=== PATIENT | female | born 1965 | race Caucasian/White ===

== ENCOUNTER → 2016-10-20 | Outpatient (CLI) | payer BC ==
--- NOTE | 2016-10-21 08:33 | MM ---
Reason for exam: screening (asymptomatic). Last mammogram was performed 1 year ago. History: Patient has history of endometrial cancer at age 38 and had first child at age 38. Benign stereotactic core biopsy of the right breast, October 02, 2001. Core biopsy of the right breast. Physical Findings: A clinical breast exam by your physician is recommended on an annual basis and results should be correlated with mammographic findings. MG 3D Screening Mammo W/Cad Bilateral CC and MLO view(s) were taken. Prior study comparison: October 15, 2015, bilateral MG 3d screening mammo w/cad. August 09, 2014, bilateral MG screening mammo w CAD. August 03, 2013, bilateral digital screening mammo w/CAD. There are scattered fibroglandular densities. Finding #1: There are typically benign round calcifications in both breasts. Finding #2: There is a microlobulated lobulated mass in the lower quadrant, middle position of the left breast. Previous mammotome biopsy in the right breast. New finding since October 15, 2015, August 09, 2014, and August 03, 2013. ASSESSMENT: Incomplete: need additional imaging evaluation, BI-RAD 0 RECOMMENDATION: Ultrasound of the left breast. [facility] will attempt to contact patient to return for ultrasound.
== END | disposition home or self-care (01) ==
LOC: RADMAMWWP 09:00
PROVIDERS: ATTEND Obstetrics & Gynecology
DX: Z12.31 Encounter for screening mammogram for malignant neoplasm of breast (principal)
CPT/HCPCS: 77063; G0202

== ENCOUNTER → 2016-10-22 | Outpatient (CLI) | payer BC ==
--- NOTE | 2016-10-22 09:53 | USB ---
Reason for exam: additional evaluation requested from abnormal screening. History: Patient has history of endometrial cancer at age 38 and had first child at age 38. Benign stereotactic core biopsy of the right breast, October 02, 2001. Core biopsy of the right breast. Physical Findings: Nurse Summary: Patient complains of pain left breast lower inner quadrant with palpation (nurse mm). US Breast Workup Limited LT Left breast ultrasound demonstrates a 0.9 x 0.5 x 0.4cm oval, cystic lesion at 7 o'clock and a 0.4 x 0.5 x 0.5cm oval, cystic, mixed, septated lesion at 7 o'clock. These results were verbally communicated with the patient and result sheet given to the patient on 10/22/16. ASSESSMENT: Benign, BI-RAD 2 RECOMMENDATION: Return to routine screening mammogram schedule for both breasts.
== END | disposition home or self-care (01) ==
LOC: RADUSWWP 07:34
PROVIDERS: ATTEND Obstetrics & Gynecology
DX: R92.8 Other abnormal and inconclusive findings on diagnostic imaging of breast (principal)

== ENCOUNTER → 2017-03-10 | Outpatient (CLI) | payer BC ==
--- NOTE | 2017-03-10 16:00 | US ---
EXAMINATION TYPE: US kidneys/renal and bladder DATE OF EXAM: 03/10/2017 COMPARISON: CT 2009 CLINICAL HISTORY: R31.21 MICROSCOPIC HEMATURIA. EXAM MEASUREMENTS: Right Kidney: 12.4 x5.0 x 6.1 cm Left Kidney: 12.0 x 5.2 x 5.0 cm Post Void Residual Volume: 87 mL Right Kidney: small cyst 1.3 x 1.0 x 0.9 inferior pole Left Kidney: Calyceal diverticulum versus renal sinus cyst measures 1.6 cm Bladder: wnl Bilateral Jets seen: Yes Normal Post Void Residual: No There is no evidence for hydronephrosis at this point in time. No nephrolithiasis is seen. No puja s are identified. The urinary bladder is anechoic. Bilateral ureteral jets are seen. IMPRESSION: 1. Abnormal post void residual of 87 mL within the urinary bladder. 2. 1.3 cm right lower pole renal cyst. 3. 1.6 cm left renal calyceal diverticulum versus renal sinus cyst.
--- NOTE | 2017-03-10 16:12 | US ---
EXAMINATION TYPE: US thyroid st tissue head/neck DATE OF EXAM: 03/10/2017 COMPARISON: 2016 CLINICAL HISTORY: E04.1 SINGLE THYROID NODULE. Left thyroidectomy for benign nodules GLAND SIZE: Right Lobe: 5.3 x 2.0 x 2.2 cm Overall Parenchyma: heterogenous Left Lobe: Surgically absent cm Isthmus Thickness: 0.2 cm NODULES RIGHT: # of nodules measured on right: 4 1. 0.7 X .03 x 0.5 cm cystic nodule at the upper pole with well-defined margins; . This nodule is wider than tall and shows no intranodular vascularity. Prior size: 0.7 x 0.7 x 0.4 cm 2. 0.6 X 0.5 x 0.5 cm isoechoic mixed nodule at the upper pole with well-defined margins; . This no dule is wider than tall and shows no intranodular vascularity. Prior size: 0.6 x 0.5 x 0.3 cm 3. 1.1 X 1.1 x 0.7 cm mixed nodule at the lower pole with well-defined margins; . This nodule shows intranodular vascularity. Looks like an adjacent 0.6 x 0.7 x 0.9 cm mixed mass Prior size: 0.7 x 0.7 x 0.6 cm 4. 0.7 X 0.7 x 0.6 cm echogenic solid nodule at the lower pole with well-defined margins; . This no dule is round and shows intranodular vascularity. Prior size: 0.8 x 0.6 x 0.5 cm LEFT: # of nodules measured on left: surgically removed ISTHMUS: # of nodules measured in the isthmus: 0 1Bilateral neck scanned, no evidence of lymphadenopathy. IMPRESSION: 1. Slight interval growth of a 1.1 cm nodule of mixed echogenicity within the lower pole with overall stability of 3 other right thyroid nodules. Follow-up is recommended in 6-12 months. 2. Surgical absence of the left thyroid.
== END | disposition home or self-care (01) ==
LOC: RADUSWWP 14:50
PROVIDERS: ATTEND Family Medicine
DX: N28.1 Cyst of kidney, acquired (principal); E04.1 Nontoxic single thyroid nodule
CPT/HCPCS: 76536; 76770

== ENCOUNTER → 2018-03-09 | Outpatient (CLI) | payer BC ==
--- NOTE | 2018-03-09 08:37 | US ---
EXAMINATION TYPE: US abdomen limited DATE OF EXAM: 03/09/2018 COMPARISON: CT 02/19/2010 CLINICAL HISTORY: R74.8 Elevated liver enzymes. EXAM MEASUREMENTS: Liver Length: 17.8 cm Gallbladder Wall: 0.2 cm CBD: 0.5 cm Right Kidney: 11.5 x 5.1 x 4.4 cm Pancreas: Tail obscured by overlying bowel gas. There is a hypodense region within the body of the p ancreas measuring 0.7 cm. Additional evaluation with CT is recommended. Liver: Increased attenuation, decreased visualization of vessels suggestive of moderate fatty infilt rate. Enlarged liver. Gallbladder: Two stones visualized Evidence for sonographic San's sign: No CBD: wnl as visualized, distal portion obscured by bowel gas Right Kidney: No hydronephrosis or masses seen IMPRESSION: 1. New visualization of a hypodense area within the pancreas. CT with contrast of the abdomen to eval uate the pancreas is recommended. Neoplasm is not excluded. 2. Moderate fatty infiltration of the liver. A Yellow level critical message alert has been initiated for Chip Whitman MD via the [employer] Critical Results System on 03/09/2018 8:34 AM. This message alert has been sent to Chip Whitman MD via the preferences provided by the clinician for the receipt of Radiology Critical Findings. Message ID [id number].
--- NOTE | 2018-03-09 09:13 | US ---
EXAMINATION TYPE: US thyroid st tissue head/neck DATE OF EXAM: 03/09/2018 COMPARISON: US 03/10/2017 CLINICAL HISTORY: E04.9 Nodular goiter. GLAND SIZE: Right Lobe: 4.7 x 2.2 x 2.0 cm Overall Parenchyma: heterogenous Left Lobe: Surgically absent Isthmus Thickness: 0.2 cm NODULES RIGHT: # of nodules measured on right: 4 1. 1.3 X 0.9 x 1.1 cm hypoechoic solid nodule at the lower pole with well-defined margins; . This nodule is wider than tall and shows intranodular vascularity. Prior size: 0.6 x 0.7 x 1.0 cm 2. 1.5 X 1.1 x 1.3 cm hypoechoic solid nodule at the lower pole with well-defined margins; . This n odule is wider than tall and shows intranodular vascularity. Prior size: 1.1 x 1.1 x 0.7 cm 3. 0.9 X 0.7 x 0.7 cm echogenic solid nodule at the lower pole with well-defined margins; . This no dule is wider than tall and shows intranodular vascularity. Prior size: 0.7 x 0.7 x 0.6 cm 4. 0.6 X 0.4 x 0.5 cm hypoechoic solid nodule at the mid pole with well-defined margins; . This nod ule is wider than tall and shows intranodular vascularity. Prior size: 0.8 x 0.4 x 0.7 cm LEFT: # of nodules measured on left: 0 ISTHMUS: # of nodules measured in the isthmus: 0 Bilateral neck scanned, no evidence of lymphadenopathy. IMPRESSION: 1. Enlarging right lobe thyroid nodules. These now measure greater than 1 cm.
== END | disposition home or self-care (01) ==
LOC: RADUSWWP 07:27
PROVIDERS: ATTEND Family Medicine
DX: K76.0 Fatty (change of) liver, not elsewhere classified (principal); R93.5 Abnormal findings on diagnostic imaging of other abdominal regions, including retroperitoneum; E04.2 Nontoxic multinodular goiter
CPT/HCPCS: 76536; 76705

== ENCOUNTER → 2018-03-09 | Outpatient (CLI) | payer BC ==
--- NOTE | 2018-03-09 14:13 | CT ---
EXAMINATION TYPE: CT pancreas biphase DATE OF EXAM: 03/09/2018 COMPARISON: 02/19/2010 and ultrasound 03/09/2018 HISTORY: 52-year-old female Cyst of pancreas. TECHNIQUE: Contiguous axial scanning of the abdomen abdomen following administration of 125 ml Isovue 370 IV contrast. Arterial and portal venous phase imaging is performed. Coronal/sagittal reconstruc tions performed. CT DLP: 1387 mGycm Automated exposure control for dose reduction was used. FINDINGS: Heart normal size without pericardial effusion. Lung bases clear without pleural effusion. Liver borderline enlarged at 18.0 cm with marked diffuse fatty infiltration. Some fatty sparing along the gallbladder fossa. No biliary ductal dilatation. Portal venous system is patent. Gallbladder is collapsed with multiple calculi. Adrenal glands, left kidney, spleen, and pancreas show no gross abnormal body. Stable exophytic subce ntimeter hypodensity posterior lower pole right kidney too small for accurate CT characterization, st ability suggesting a benign etiology such as a cyst. No dilated small bowel, free fluid, or free air. Tiny fatty umbilical hernia. Partial visualization of a normal appendix. Some prominent but nonenlarged right lower quadrant mesen teric lymph nodes measuring up to 6 mm, unchanged to smaller from 2010. Mild to moderate stool burden . No pericolonic inflammatory change. With direct attention to the pancreas, no focal pancreatic lesion is identified. No dilatation of the pancreatic duct. Bones: Degenerative disc disease L5-S1. Facet arthropathy lower lumbar spine. No osseous destructive process. IMPRESSION: 1. NO SUSPICIOUS PANCREATIC LESION. WHEN CORRELATING WITH CT IMAGES, THE ULTRASOUND FINDING IS SUSPEC CORY TO CORRESPOND TO A TORTUOUS PANCREATIC ARTERY. 2. CHOLELITHIASIS. 3. BORDERLINE HEPATOMEGALY (18.0 CM) WITH MARKED HEPATIC STEATOSIS. CORRELATE WITH LFT's, LIPID PROFI LE, AND PATIENT RISK FACTORS.
== END | disposition home or self-care (01) ==
LOC: RADCTMAIN 12:33
PROVIDERS: ATTEND Family Medicine
DX: K80.20 Calculus of gallbladder without cholecystitis without obstruction (principal); K76.0 Fatty (change of) liver, not elsewhere classified; R16.0 Hepatomegaly, not elsewhere classified
CPT/HCPCS: 74160; Q9967

== ENCOUNTER → 2018-06-05 | Outpatient (CLI) | payer BC ==
--- NOTE | 2018-06-05 13:57 | MM ---
Reason for exam: screening (asymptomatic). Last mammogram was performed 1 year and 7 months ago. History: Patient has history of endometrial cancer at age 38 and had first child at age 38. Benign stereotactic core biopsy of the right breast, October 02, 2001. Core biopsy of the right breast. Physical Findings: A clinical breast exam by your physician is recommended on an annual basis and results should be correlated with mammographic findings. MG 3D Screening Mammo W/Cad Bilateral CC and MLO view(s) were taken. Prior study comparison: October 20, 2016, bilateral MG 3d screening mammo w/cad. October 15, 2015, bilateral MG 3d screening mammo w/cad. There are scattered fibroglandular densities. Stable benign calcifications. There is chronic nodularity in the left breast. No significant changes when compared with prior studies. ASSESSMENT: Benign, BI-RAD 2 RECOMMENDATION: Routine screening mammogram of both breasts in 1 year.
== END | disposition home or self-care (01) ==
LOC: RADMAMWWP 10:09
PROVIDERS: ATTEND Family Medicine
DX: Z12.31 Encounter for screening mammogram for malignant neoplasm of breast (principal)
CPT/HCPCS: 77063; 77067

== ENCOUNTER → 2019-09-21 | Outpatient (CLI) | payer BC ==
--- NOTE | 2019-09-24 09:42 | MM ---
Reason for exam: screening (asymptomatic). Last mammogram was performed 1 year and 4 months ago. History: Patient is postmenopausal, has history of endometrial cancer at age 38, and had first child at age 38. Benign stereotactic core biopsy of the right breast, October 02, 2001. Core biopsy of the right breast. Physical Findings: A clinical breast exam by your physician is recommended on an annual basis and results should be correlated with mammographic findings. MG 3D Screening Mammo W/Cad Bilateral CC and MLO view(s) were taken. Prior study comparison: June 05, 2018, bilateral MG 3d screening mammo w/cad. October 20, 2016, bilateral MG 3d screening mammo w/cad. There are scattered fibroglandular densities. There is no discrete abnormality. No significant changes when compared with prior studies. ASSESSMENT: Negative, BI-RAD 1 RECOMMENDATION: Routine screening mammogram of both breasts in 1 year.
== END | disposition home or self-care (01) ==
LOC: RADMAMWWP 10:56
PROVIDERS: ATTEND Family Medicine
DX: Z12.31 Encounter for screening mammogram for malignant neoplasm of breast (principal)
CPT/HCPCS: 77063; 77067

== ENCOUNTER → 2020-03-28 | Outpatient (CLI) | payer BC ==
--- NOTE | 2020-03-28 10:58 | US ---
EXAMINATION TYPE: US thyroid st tissue head/neck DATE OF EXAM: 03/28/2020 COMPARISON: 03/09/2018 CLINICAL HISTORY: E04.9 nontoxic goiter. GLAND SIZE: Right Lobe: 5.4 x 2.9 x 2.6 cm Overall Parenchyma: heterogenous Left Lobe: Surgically absent cm Isthmus Thickness: 0.3 cm NODULES RIGHT: # of nodules measured on right: 1. 1.3 X 1.1 x 1.3 cm hypoechoic mixed nodule at the mid pole with well-defined margins. This nodu le is wider than tall and shows no intranodular vascularity. Prior size: 1.3 x 0.9 x 1.1 cm 2. 1.6 X 1.2 x 1.2 cm isoechoic mixed nodule at the mid pole with margins. This nodule is taller th an wide and shows intranodular vascularity. Prior size: 1.5 x 1.1 x 1.3 cm 3. 0.8 X 0.8 x 0.8 cm echogenic solid nodule at the lower pole with well-defined margins. This nodu le is wider than tall and shows intranodular vascularity. Prior size: 0.9 x 0.7 x 0.7 cm 4. 0.7 X 0.7 x 0.7 cm hypoechoic solid nodule at the mid pole with well-defined margins. This nodul e is taller than wide and shows no intranodular vascularity. Prior size: 0.6 x 0.4 x 0.5 cm LEFT: # of nodules measured on left: 0 ISTHMUS: # of nodules measured in the isthmus: 0 Bilateral neck scanned, no evidence of lymphadenopathy. IMPRESSION: Right lobe is enlarged and heterogeneous correlate for thyroiditis. Stable multinodular changes are s een with no significant interval change.
== END | disposition home or self-care (01) ==
LOC: RADUSWWP 10:05
PROVIDERS: ATTEND Family Medicine
DX: E04.2 Nontoxic multinodular goiter (principal)
CPT/HCPCS: 76536

== ENCOUNTER → 2020-09-10 | Outpatient (CLI) | payer BC ==
[2020-09-10 16:50] VITALS: BP 164/78; PULSE 69; RESP 18; TEMP 98; BMI 47.7
--- NOTE | 2020-09-10 18:11 | P.HPBAR ---
Bariatric H&P - History & Physicial H&P Date: 09/10/20 History & Physicial: Visit/CC: initial visit Patient initial contact: Initial weight: Initial weight in pounds: Height: 5 ft 2 in Initial BMI: Last weight: Current weight: 118.388 kg Current weight in pounds: 261.00 Current BMI: 47.7 Johnson body weight (based on NIH guidelines): 49.895 kg Excess body weight loss: The patient is a 55 year-old F who presents for Bariatric Assessment. She comes in looking into the sleeve gastrectomy. No reports of trouble with weight in her dad. She does not know her dad history. She has one time option. She has occasional GERD. She still gallbladder. She reports indigestion with fatty foods. She denies food allergies. No Crohns or ulcerative or stomach or esophageal cancer. She has colitis. She has poor sleep. No blood clots. Has easy bruising. Has lower back pain, hip pain, knee pain, not ankles. She has swelling of the ankles. No dysphagia. No diabetes. She has high blood pressure. Smoked in the past. [facility] [place] OF SERVICE: 09/10/2020 REASON FOR CONSULTATION: Initial bariatric evaluation. HISTORY OF PRESENT ILLNESS: Tim Dodson is a 55-year-old female who comes with lifelong morbid obesity. She comes in looking into the sleeve gastrectomy. She does not know her dad history. She has one time option for surgical weight loss per her insurance requirements. She has occasional gastroesophageal reflux disease. She still has her gallbladder. She reports indigestion with fatty foods. She denies food allergies. She denies Crohns or ulcerative disease in herself of family. She denies stomach or esophageal cancer in her family. She has colitis. She reports poor sleep. She denies blood clots. She has easy bruising. She has lower back pain, hip pain, knee pain, but denies ankle pain. She has swelling of the ankles. She denies dysphagia. No reports of diabetes. She has high blood pressure. She has smoked in the past. At height of 5 feet 2 inches, her ideal body weight is 135 pounds. She comes in 260 pounds. Her body mass index is 47.7. She is 125 pounds overweight. PAST MEDICAL HISTORY: 1. Morbid obesity due to excess calories 2. Body mass index of 47.7, initial 3. Gastroesophageal reflux disease. 4. Colitis 5. Hyperlipidemia 6. Osteoarthritis of the back 7. Osteoarthritis of the hips 8. Osteoarthritis of the knees 9. Hypertensive heart disease. PAST SURGICAL HISTORY: 1. Left breast biopsy 2. Hysterectomy 3. Tonsillectomy 4. Thyroid surgery HOME MEDICATIONS: Home Medications Medication Instructions Recorded Confirmed Aspirin [Adult Low Dose Aspirin EC] 81 mg PO DAILY 09/11/20 09/11/20 Atorvastatin [Lipitor] 20 mg PO DAILY 09/11/20 09/11/20 Cholecalciferol [Vitamin D3 (25 50 mcg PO DAILY 09/11/20 09/11/20 Mcg = 1000 Iu)] FLUoxetine HCL 20 mg PO DAILY 09/11/20 09/11/20 Furosemide [Lasix] 20 mg PO DAILY 09/11/20 09/11/20 Losartan Potassium [Cozaar] 100 mg PO DAILY 09/11/20 09/11/20 Metoprolol Tartrate [Lopressor] 25 mg PO BID 09/11/20 09/11/20 Vitamin E (Dl,Tocopheryl Acet) 400 unit PO DAILY 09/11/20 09/11/20 [Vitamin E] ALLERGIES: Allergies Allergy/AdvReac Type Severity Reaction Status Date / Time No Known Allergies Allergy Verified 09/11/20 11:06 SOCIAL HISTORY: Past tobacco use. FAMILY HISTORY: No family history of ulcerative colitis disease or Crohn's disease. Family history of morbid obesity. No lupus in the family. No reports of stomach or esophageal cancer. REVIEW OF ORGAN SYSTEMS: CONSTITUTIONAL: At height of 5 feet 2 inches, her ideal body weight is 135 pounds. She comes in 260 pounds. Her body mass index is 47.7. She is 125 pounds overweight. HEENT: Denies any active troubles with vision or hearing. ENDOCRINE: No diabetes. Has thyroid disorder. CARDIOVASCULAR: No past reports of palpitations or heart attacks or chest pain. Has hypertensive heart disease. Has hyperlipidemia. RESPIRATORY: Has daytime somnolence. Denies asthma GASTROINTESTINAL: Denies any bright red blood per rectum. No diarrhea. No constipation. Has gastroesophageal reflux disease. GENITOURINARY: Denies bladder urgency. No recent blood in urine. Past cervical cancer. MUSCULOSKELETAL: Has lower back pain and joint pain. Has osteoarthritis of the knees. NEURO: No headaches. No seizure disorders. PSYCH: Has depression. No suicidal ideation. RHEUMATOLOGIC: No lupus. No rheumatoid arthritis. HEMATOLOGIC: Denies any abnormal bleeding. Has bruising. SKIN: No rash. No skin cancer. PHYSICAL EXAM: VITAL SIGNS: Height 5 foot 2 inches, weight 260 pounds. BMI 47.7 Vital Signs Temp 98.0 F 09/10/20 16:34 Pulse 69 09/10/20 16:34 Resp 18 09/10/20 16:34 BP 164/78 09/10/20 16:34 Pulse Ox GENERAL: Well-developed in no acute distress. HEENT: No scleral icterus. Extraocular movements grossly intact. Hears conversational speech. No nasal drainage. NECK: Supple without lymphadenopathy. CHEST: Nonlabored respirations with equal bilateral excursions. CARDIOVASCULAR: Regular rate and regular rhythm. Distal 2+ pulses. ABDOMEN: Obese, soft, nontender, nondistended. MUSCULOSKELETAL: No clubbing, cyanosis. NEURO: No focal or lateralizing signs. Cranial nerves 2 through 12 grossly within normal limits. PSYCH: Appropriate affect. Alert and oriented to person, place and time. SKIN: Good skin turgor. Well perfused. ASSESSMENT: 1. Morbid obesity due to excess calories 2. Body mass index of 47.7, initial 3. Gastroesophageal reflux disease. 4. Colitis 5. Hyperlipidemia 6. Osteoarthritis of the back 7. Osteoarthritis of the hips 8. Osteoarthritis of the knees 9. Hypertensive heart disease. PLAN: 1. Surgical options including a band, gastric bypass, sleeve gastrectomy were described in detail. Alternatives such as gastric balloon including duodenal switch were described. She is looking into the gastric bypass. 2. The [place] bariatric surgical collaborative data and outcomes calculator were described with surgical options. 3. Recommend a bariatric metabolic panel to evaluate for micro- including macronutrient deficiencies. 4. For history of daytime somnolence, recommend evaluation and treatment for sleep apnea. 5. Dietary surveillance and counseling was reviewed. Increased protein intake over 65 grams daily advised. 6. Will need cardiac risk assessment. 7. Recommend medical risk assessment. 8. Psych assessment per insurance guidelines. 9. Recommend upper endoscopy. 10. Recommend 12-lead EKG. Thank you for this consultation. Past Medical History Past Medical History: Cancer, Hypertension, Thyroid Disorder Additional Past Medical History / Comment(s): cervical cancer 2003 History of Any Multi-Drug Resistant Organisms: None Reported Past Surgical History: Breast Surgery, Hysterectomy, Orthopedic Surgery, Tonsillectomy Additional Past Surgical History / Comment(s): thyroid surgery; bone removed left pinky toe; left breast biopsy Past Anesthesia/Blood Transfusion Reactions: No Reported Reaction Past Psychological History: Depression Smoking Status: Former smoker Past Alcohol Use History: Rare Past Drug Use History: Marijuana Additional Drug Use History / Comment(s): daily marijuana user Surgical - Exam Vital Signs Temp Pulse Resp BP 98.0 F 69 18 164/78 09/10/20 16:34 09/10/20 16:34 09/10/20 16:34 09/10/20 16:34 Bariatric Checklist Checklist: Plan: Checklist: EGD: 1. Hiatal hernia: 2. H. Pylori: HgbA1c: Vitamin D: Smoking: Primary care physician referral: Dr. Whitman Psychiatry clearance: Cardiology clearance: Sleep study: Diet journal: VTE risk score: VTE risk level: Rehab needs at discharge:
== END | disposition home or self-care (01) ==
LOC: BARWHC3 16:24
PROVIDERS: ATTEND Surgery Plastic and Reconstructive Surgery
DX: E66.01 Morbid (severe) obesity due to excess calories (principal); K21.9 Gastro-esophageal reflux disease without esophagitis; E78.5 Hyperlipidemia, unspecified; M17.0 Bilateral primary osteoarthritis of knee; M16.0 Bilateral primary osteoarthritis of hip; I11.9 Hypertensive heart disease without heart failure; M47.9 Spondylosis, unspecified; K52.9 Noninfective gastroenteritis and colitis, unspecified; Z68.42 Body mass index [BMI] 45.0-49.9, adult; Z79.82 Long term (current) use of aspirin; Z79.891 Long term (current) use of opiate analgesic; Z79.899 Other long term (current) drug therapy; Z90.710 Acquired absence of both cervix and uterus
CPT/HCPCS: 99211

== ENCOUNTER → 2020-10-09 | Outpatient (CLI) | payer BC ==
[2020-10-09 19:26] LABS: INR 0.91 (0.90-1.11)
[2020-10-10 01:35] LABS: HCT 35.9 % (37.2-46.3); HGB 11.1 g/dL (12.0-15.0); MCH 30.2 pg (27.0-32.0); MCHC 30.9 g/dL (32.0-37.0); MCV 97.8 fL (80.0-97.0); Mean Platelet Volume 10.4 fL (9.5-12.2); Platelet Count 423 X 10*3/uL (140-440); RBC 3.67 X 10*6/uL (4.10-5.20); RDW 12.8 % (11.5-14.5); WBC 8.52 X 10*3/uL (4.50-10.00)
[2020-10-10 03:32] LABS: Hemoglobin A1C 5.6 % (4.0-6.0)
[2020-10-10 09:03] LABS: % Iron Saturation 40.28 (12.00-45.00); Albumin 4.3 g/dL (3.80-4.90); Albumin/Globulin Ratio 2.39 (1.60-3.17); Anion Gap 13.6 mmol/L (4.00-12.00); BUN/Creat Ratio 17.78 Ratio (12.00-20.00); Calcium 9.4 mg/dL (8.7-10.3); Carbon Dioxide 24.4 mmol/L (21.6-31.8); Chol/HDL Ratio 3.1; Globulin 1.8 g/dL (1.6-3.3); LDL Cholesterol,Calculated 89.6 mg/dL (0.0-131.0); Magnesium 1.9 mg/dL (1.5-2.4); Non-African American GFR(CKD) 72.5 (60.0-200.0); Phosphorus 3.2 mg/dL (2.4-5.1); Potassium 4.1 mmol/L (3.5-5.5); Total Bilirubin 0.7 mg/dL (0.3-1.2); Total Protein 6.1 g/dL (6.2-8.2); VLDL Calculation 17.4 mg/dL (5.00-40.00)
[2020-10-10 09:14] LABS: Ferritin 120.4 ng/mL (10.0-291.0)
[2020-10-10 09:30] LABS: Folate, Serum 8.8 ng/mL
[2020-10-10 12:18] LABS: Zinc, Serum 61 ug/dL (60-130)
[2020-10-12 18:32] LABS: Selenium 120 mcg/L (63-160)
[2020-10-13 07:07] LABS: Vitamin A 36 ug/dL (38-106)
[2020-10-13 07:32] LABS: Vit B1(Thiamine) 48 ug/L (38-122)
== END | disposition home or self-care (01) ==
LOC: LABWHC1 10:29
PROVIDERS: ATTEND Surgery Plastic and Reconstructive Surgery
DX: N19 Unspecified kidney failure (principal); K74.1 Hepatic sclerosis; E89.1 Postprocedural hypoinsulinemia; D50.8 Other iron deficiency anemias; E44.0 Moderate protein-calorie malnutrition; E55.9 Vitamin D deficiency, unspecified; K50.90 Crohn's disease, unspecified, without complications
CPT/HCPCS: 36415; 80053; 80061; 82306; 82525; 82607; 82728; 82746; 83036; 83540; 83550; 83735; 83970; 84100; 84134; 84255; 84425; 84443; 84590; 84630; 85027; 85610; 85730

== ENCOUNTER 2020-10-15 09:29 | Day surgery (SDC) | payer BC ==
[2020-10-10 15:10] VITALS: BMI 45.3
--- NOTE | 2020-10-15 04:08 | P.GSHP ---
History of Present Illness H&P Date: 10/15/20 CHIEF COMPLAINT: GERD HISTORY OF PRESENT ILLNESS: The patient is a 55-year-old female who presents reports gastroesophageal reflux disease. Upper endoscopy was offered for further evaluation and management. PAST MEDICAL HISTORY: Please see list. PAST SURGICAL HISTORY: Please see list. MEDICATIONS: Please see list. ALLERGIES: Please see list. SOCIAL HISTORY: No illicit drug use FAMILY HISTORY: No reports of Crohn disease or ulcerative colitis. REVIEW OF ORGAN SYSTEMS: CONSTITUTIONAL: No reports of fevers or chills. GI: Denies any blood in stools or constipation. PHYSICAL EXAM: VITAL SIGNS: Stable GENERAL: Well-developed and pleasant in no acute distress. HEENT: No scleral icterus. Extraocular movements grossly intact. Moist buccal mucosa. NECK: Supple without lymphadenopathy. CHEST: Unlabored respirations. Equal bilateral excursions. CARDIOVASCULAR: Regular rate and rhythm. Distal 2+ pulses. ABDOMEN: Soft, nondistended. MUSCULOSKELETAL: No clubbing, cyanosis, or edema. ASSESSMENT: 1. Gastroesophageal reflux disease PLAN: 1. Recommend proceeding with an upper endoscopy Past Medical History Past Medical History: Cancer, Hypertension, Thyroid Disorder Additional Past Medical History / Comment(s): cervical cancer 2004 History of Any Multi-Drug Resistant Organisms: None Reported Past Surgical History: Breast Surgery, Hysterectomy, Orthopedic Surgery, Tonsillectomy Additional Past Surgical History / Comment(s): thyroid surgery; bone removed left pinky toe; left breast biopsy Past Anesthesia/Blood Transfusion Reactions: No Reported Reaction Smoking Status: Former smoker - Past Family History Mother Family Medical History: No Reported History Father History Unknown: Yes Medications and Allergies Home Medications Medication Instructions Recorded Confirmed Type Aspirin [Adult Low Dose Aspirin EC] 81 mg PO DAILY 09/11/20 10/10/20 History Atorvastatin [Lipitor] 10 mg PO DAILY 09/11/20 10/10/20 History Cholecalciferol [Vitamin D3 (25 50 mcg PO DAILY 09/11/20 10/10/20 History Mcg = 1000 Iu)] FLUoxetine HCL 20 mg PO HS 09/11/20 10/10/20 History Furosemide [Lasix] 20 mg PO DAILY 09/11/20 10/10/20 History Losartan Potassium [Cozaar] 100 mg PO QAM 09/11/20 10/10/20 History Metoprolol Tartrate [Lopressor] 25 mg PO BID 09/11/20 10/10/20 History Vitamin E (Dl,Tocopheryl Acet) 400 unit PO DAILY 09/11/20 10/10/20 History [Vitamin E] Allergies Allergy/AdvReac Type Severity Reaction Status Date / Time No Known Allergies Allergy Verified 10/10/20 15:04
[~2020-10-15 09:29] MED LIST: LACTATED RINGERS 1,000 ML IV SCH; LIDOCAINE 1% (10MG/ML) FOR IV START INTRADERMA PRN
[2020-10-15 09:45] VITALS: TEMP 98.3
[2020-10-15] MEDS ORDERED: PROPOFOL 10 MG/ML 20 ML VIAL IV ONE (10:24)
[2020-10-15] MEDS ORDERED: LIDOCAINE 1% INJ 10MG/ML (20 ML MDV) ONE (10:24)
[2020-10-15 11:00] VITALS: BP 139/73; PULSE 60; RESP 16
--- NOTE | 2020-10-22 11:44 | P.PCN ---
Date of Procedure: 10/15/20 Description of Procedure: PREOPERATIVE DIAGNOSIS: Gastroesophageal reflux disease. Morbid obesity. POSTOPERATIVE DIAGNOSIS: Morbid obesity. Gastritis. Gastroesophageal reflux disease. Diaphragmatic hiatal hernia OPERATION: Esophagogastroduodenoscopy with biopsies along antrum. SURGEON: Radha Leon MD ANESTHESIA: MAC. INDICATIONS: The patient is a 55-year-old female who presents with a history of reflux disease. Benefits and risks of the procedure were described. Informed consent was obtained. DESCRIPTION: The patient was brought into the endoscopy suite and laid in the left lateral decubitus position. An Olympus gastroscope was passed along the posterior oropharynx down to the distal esophagus where the squamocolumnar junction was encountered at 37 cm from the incisors. The stomach was entered and no bile reflux was found. Additional findings are listed below. Biopsies with cold fo rceps were obtained of the antrum. The first through third portion of the duodenum was examined and unremarkable. Retroflexion of the scope confirmed Hill grade 3 lower esophageal valve. The squamocolumnar junction demonstrated LA grade B erosive esophagitis. The stomach was desufflated. The patient tolerated the procedure well. FINDINGS: Squamocolumnar junction 37 cm from the incisors. Diaphragmatic hiatus at 40 cm. Hiatal hernia, 3 cm Hill grade 3 lower esophageal valve. LA grade B erosive esophagitis. No active duodenitis. Chronic gastritis RECOMMENDATIONS: Upper endoscopy as needed. Plan - Discharge Summary Discharge Rx Participant: No New Discharge Prescriptions: Continue Vitamin E (Dl,Tocopheryl Acet) [Vitamin E] 400 unit PO DAILY Cholecalciferol [Vitamin D3 (25 Mcg = 1000 Iu)] 50 mcg PO DAILY Atorvastatin [Lipitor] 10 mg PO DAILY Losartan Potassium [Cozaar] 100 mg PO QAM Furosemide [Lasix] 20 mg PO DAILY FLUoxetine HCL 20 mg PO HS Aspirin [Adult Low Dose Aspirin EC] 81 mg PO DAILY Metoprolol Tartrate [Lopressor] 25 mg PO BID Discharge Medication List Aspirin [Adult Low Dose Aspirin EC] 81 mg PO DAILY 09/11/20 [History] Atorvastatin [Lipitor] 10 mg PO DAILY 09/11/20 [History] Cholecalciferol [Vitamin D3 (25 Mcg = 1000 Iu)] 50 mcg PO DAILY 09/11/20 [Histo ry] FLUoxetine HCL 20 mg PO HS 09/11/20 [History] Furosemide [Lasix] 20 mg PO DAILY 09/11/20 [History] Losartan Potassium [Cozaar] 100 mg PO QAM 09/11/20 [History] Metoprolol Tartrate [Lopressor] 25 mg PO BID 09/11/20 [History] Vitamin E (Dl,Tocopheryl Acet) [Vitamin E] 400 unit PO DAILY 09/11/20 [History] [facility] [place] [facility] Patient Instructions/Handouts: *[facility] - (Anesthesia) Endoscopy Discharge Instructions, Gastritis (DC), Upper Endoscopy (DC) Activity/Diet/Wound Care/Special Instructions: REST TODAY, NO DRIVING, DRINK LOTS OF FLUIDS Discharge Disposition: HOME SELF-CARE
== END 2020-10-15 11:25 | disposition home or self-care (01) ==
LOC: ORWHC2ENDO 09:29
PROVIDERS: ATTEND Surgery Plastic and Reconstructive Surgery
DX: K21.9 Gastro-esophageal reflux disease without esophagitis (principal); I10 Essential (primary) hypertension; E78.5 Hyperlipidemia, unspecified; F32.9 Major depressive disorder, single episode, unspecified; E66.01 Morbid (severe) obesity due to excess calories; E89.0 Postprocedural hypothyroidism; Z85.41 Personal history of malignant neoplasm of cervix uteri; Z98.890 Other specified postprocedural states; Z90.710 Acquired absence of both cervix and uterus; Z90.89 Acquired absence of other organs; Z87.891 Personal history of nicotine dependence; Z79.82 Long term (current) use of aspirin; Z79.899 Other long term (current) drug therapy; Z68.42 Body mass index [BMI] 45.0-49.9, adult
CPT/HCPCS: 43239; 88305; J2001; J2704

== ENCOUNTER → 2020-11-26 | Outpatient (CLI) | payer BC ==
--- NOTE | 2020-11-26 18:52 | P.PN ---
Subjective Progress Note Date: 11/26/20 DATE OF SERVICE: 11/26/2020 CHIEF COMPLAINT: Morbid obesity HISTORY OF PRESENT ILLNESS: Tim Dodson is a 55-year-old female who comes with lifelong morbid obesity. She comes in looking into the sleeve gastrectomy. As a result of her morbid obesity, she has developed sleep apnea, osteoarthritis of the lower back pain, hip pain, knee pain, including hypertensive heart disease. She comes in with new anemia. She has completed upper endoscopy. Her last colonosopy was 5 years ago. She has completed COVID vaccination. She is in medical supervised weight loss. She presents for management of her morbid obesity including new anemia. At height of 5 feet 2 inches, her ideal body weight is 135 pounds. She comes in 266 pounds from 260 pounds, 2 months ago. She has gained 6 pounds in 2 months. Her body mass index is 48.8. She is 131 pounds overweight. PAST MEDICAL HISTORY: 1. Morbid obesity due to excess calories 2. Body mass index of 48.8 3. Gastroesophageal reflux disease. 4. Colitis 5. Hyperlipidemia 6. Osteoarthritis of the back 7. Osteoarthritis of the hips 8. Osteoarthritis of the knees 9. Hypertensive heart disease. PAST SURGICAL HISTORY: 1. Left breast biopsy 2. Hysterectomy 3. Tonsillectomy 4. Thyroid surgery HOME MEDICATIONS: Home Medications Medication Instructions Recorded Confirmed Aspirin [Adult Low Dose Aspirin EC] 81 mg PO DAILY 09/11/20 09/11/20 Atorvastatin [Lipitor] 20 mg PO DAILY 09/11/20 09/11/20 Cholecalciferol [Vitamin D3 (25 50 mcg PO DAILY 09/11/20 09/11/20 Mcg = 1000 Iu)] FLUoxetine HCL 20 mg PO DAILY 09/11/20 09/11/20 Furosemide [Lasix] 20 mg PO DAILY 09/11/20 09/11/20 Losartan Potassium [Cozaar] 100 mg PO DAILY 09/11/20 09/11/20 Metoprolol Tartrate [Lopressor] 25 mg PO BID 09/11/20 09/11/20 Vitamin E (Dl,Tocopheryl Acet) 400 unit PO DAILY 09/11/20 09/11/20 [Vitamin E] ALLERGIES: Allergies Allergy/AdvReac Type Severity Reaction Status Date / Time No Known Allergies Allergy Verified 09/11/20 11:06 SOCIAL HISTORY: Past tobacco use. FAMILY HISTORY: No family history of ulcerative colitis disease or Crohn's disease. Family history of morbid obesity. No lupus in the family. No reports of stomach or esophageal cancer. REVIEW OF ORGAN SYSTEMS: CONSTITUTIONAL: At height of 5 feet 2 inches, her ideal body weight is 135 pounds. She comes in 260 pounds. Her body mass index is 47.7. She is 125 pounds overweight. HEENT: Denies any active troubles with vision or hearing. ENDOCRINE: No diabetes. Has thyroid disorder. CARDIOVASCULAR: No past reports of palpitations or heart attacks or chest pain. Has hypertensive heart disease. Has hyperlipidemia. RESPIRATORY: Has daytime somnolence. Denies asthma GASTROINTESTINAL: Denies any bright red blood per rectum. No diarrhea. No constipation. Has gastroesophageal reflux disease. GENITOURINARY: Denies bladder urgency. No recent blood in urine. Past cervical cancer. MUSCULOSKELETAL: Has lower back pain and joint pain. Has osteoarthritis of the knees. NEURO: No headaches. No seizure disorders. PSYCH: Has depression. No suicidal ideation. RHEUMATOLOGIC: No lupus. No rheumatoid arthritis. HEMATOLOGIC: Denies any abnormal bleeding. Has bruising. SKIN: No rash. No skin cancer. PHYSICAL EXAM: VITAL SIGNS: Height 5 foot 2 inches, weight 266 pounds. BMI 48.8 Vital Signs Temp 97.5 F L 11/26/20 18:33 Pulse 63 11/26/20 18:33 Resp 16 11/26/20 18:33 BP 146/83 11/26/20 18:33 Pulse Ox GENERAL: Well-developed in no acute distress. HEENT: No scleral icterus. Extraocular movements grossly intact. Hears conversational speech. No nasal drainage. NECK: Supple without lymphadenopathy. CHEST: Nonlabored respirations with equal bilateral excursions. CARDIOVASCULAR: Regular rate and regular rhythm. Distal 2+ pulses. ABDOMEN: Obese, soft, nontender, nondistended. MUSCULOSKELETAL: No clubbing, cyanosis. NEURO: No focal or lateralizing signs. Cranial nerves 2 through 12 grossly within normal limits. PSYCH: Appropriate affect. Alert and oriented to person, place and time. SKIN: Good skin turgor. Well perfused. LABS: Hemoglobin low, total protein is low, Vitamin A is low, PTH is elevated EGD FINDINGS: Squamocolumnar junction 37 cm from the incisors. Diaphragmatic hiatus at 40 cm. Hiatal hernia, 3 cm Hill grade 3 lower esophageal valve. LA grade B erosive esophagitis. No active duodenitis. Chronic gastritis Final Pathologic Diagnosis GASTRIC ANTRUM, BIOPSY: Benign gastric mucosa without significant histopathologic changes. ASSESSMENT: 1. Morbid obesity due to excess calories 2. Body mass index of 48.8 3. Gastroesophageal reflux disease. 4. Colitis 5. Hyperlipidemia 6. Osteoarthritis of the back 7. Osteoarthritis of the hips 8. Osteoarthritis of the knees 9. Hypertensive heart disease. 10. Vitamin A deficiency 11. Anemia 12. Secondary hyperparathyroidism 13. Hiatal hernia PLAN: 1. She comes in with anemia. Upper endoscopy is completed. Recommend colonoscopy for anemia. 2. Recommend repeat labs for iron and CBC. 3. Recommend EKG. 4. Recommend esophagram for further evaluation of her hiatal hernia. 5. Recommend food journal for dietary surveillance. Objective - Vital Signs Vital signs: Vital Signs Temp 97.5 F L 11/26/20 18:33 Pulse 63 11/26/20 18:33 Resp 16 11/26/20 18:33 BP 146/83 11/26/20 18:33 Pulse Ox Intake & Output 11/25/20 11/26/20 11/26/20 18:59 06:59 18:59 Weight 121.109 kg
== END ==
CPT/HCPCS: 99211

== ENCOUNTER → 2020-12-05 | Outpatient (CLI) | payer BC ==
[2020-12-05 23:37] LABS: HGB 13.9 g/dL (12.0-15.0); MCH 28.8 pg (27.0-32.0); MCHC 30.9 g/dL (32.0-37.0); MCV 93.4 fL (80.0-97.0); Mean Platelet Volume 10.5 fL (9.5-12.2); Platelet Count 221 X 10*3/uL (140-440); RBC 4.82 X 10*6/uL (4.10-5.20); RDW 13.6 % (11.5-14.5)
[2020-12-06 03:26] LABS: Ferritin 72.9 ng/mL (10.0-291.0)
[2020-12-06 03:44] LABS: % Iron Saturation 17.82 (12.00-45.00)
== END | disposition home or self-care (01) ==
LOC: LABWHC1 10:11
PROVIDERS: ATTEND Surgery Plastic and Reconstructive Surgery
DX: E66.01 Morbid (severe) obesity due to excess calories (principal); D50.9 Iron deficiency anemia, unspecified; Z98.84 Bariatric surgery status
CPT/HCPCS: 36415; 82728; 83540; 83550; 85027; 93005

== ENCOUNTER → 2020-12-15 | Outpatient (CLI) | payer BC ==
[2020-12-15 09:16] VITALS: BMI 48.8
== END ==
LOC: BARWHC3 08:49
PROVIDERS: ATTEND Surgery Plastic and Reconstructive Surgery
DX: E66.01 Morbid (severe) obesity due to excess calories (principal); Z71.3 Dietary counseling and surveillance; Z68.41 Body mass index [BMI] 40.0-44.9, adult
CPT/HCPCS: 97804

== ENCOUNTER → 2021-02-04 | Outpatient (CLI) | payer BC ==
[2021-02-04 17:28] VITALS: BP 125/79; PULSE 71; RESP 18; TEMP 98.1; BMI 48.8
--- NOTE | 2021-02-04 17:51 | P.PN ---
Subjective Progress Note Date: 02/04/21 Consent for sleeve reviewed. Objective - Vital Signs Vital signs: Vital Signs Temp 98.1 F 02/04/21 17:23 Pulse 71 02/04/21 17:23 Resp 18 02/04/21 17:23 BP 125/79 02/04/21 17:23 Pulse Ox Intake & Output 02/03/21 02/04/21 02/04/21 18:59 06:59 18:59 Weight 121.109 kg
== END | disposition home or self-care (01) ==
LOC: BARWHC3 16:18
PROVIDERS: ATTEND Surgery Plastic and Reconstructive Surgery
DX: E66.01 Morbid (severe) obesity due to excess calories (principal)
CPT/HCPCS: 99211

== ENCOUNTER 2021-02-23 07:30 | Inpatient (IN) | payer BC ==
[2021-03-02] MEDS ORDERED: LIDOCAINE 1% (10MG/ML) FOR IV START INTRADERMA PRN (06:03)
[2021-03-02] MEDS ORDERED: MIDAZOLAM 2 MG/2 ML VIAL IV PRN (06:03)
[2021-03-02] MEDS ORDERED: ONDANSETRON 4 MG/2 ML VIAL IVP PRN (06:03)
[2021-03-02] MEDS ORDERED: SCOPOLAMINE 1.5MG/72HR PATCH TRANSDERM ONE (06:03)
[2021-03-02] MEDS ORDERED: DEXAMETHASONE SOD PHOSPHATE 4 MG/ML 1 ML VIAL IV ONE (06:03)
[2021-03-02] MEDS ORDERED: ONDANSETRON 4 MG/2 ML VIAL IVP ONE ×2 (06:03→14:13)
[2021-03-02] MEDS ORDERED: CHLORHEXIDINE GLUCONATE 15 ML CUP MUCOUS MEM PRN (07:00)
[2021-03-02] MEDS ORDERED: PANTOPRAZOLE 40 MG/10 ML VIAL IVP PRN (07:00)
[2021-03-02] MEDS ORDERED: ENOXAPARIN 40 MG/0.4 ML SYRINGE SQ PRN (07:00)
[2021-03-02] MEDS ORDERED: MELOXICAM 7.5 MG TAB PO PRN (09:45)
[2021-03-02] MEDS ORDERED: GABAPENTIN 300 MG CAP PO PRN (09:45)
[2021-03-02] MEDS ORDERED: ACETAMINOPHEN TAB 500 MG TAB PO PRN (09:45)
[2021-03-02] MEDS ORDERED: SCOPOLAMINE 1.5MG/72HR PATCH TRANSDERM PRN (09:45)
--- NOTE | 2021-03-02 09:49 | P.GSHP ---
History of Present Illness H&P Date: 03/02/21 CHIEF COMPLAINT: Morbid obesity HISTORY OF PRESENT ILLNESS: Tim Dodson is a 55-year-old female who comes with lifelong morbid obesity. She comes in looking into the sleeve gastrectomy. As a result of her morbid obesity, she has developed sleep apnea, osteoarthritis of the lower back pain, hip pain, knee pain, including hypertensive heart disease. She has completed medical risk assessment, cardiac risk assessment, psych assessment for the bariatric program. At height of 5 feet 2 inches, her ideal body weight is 135 pounds. She comes in 266 pounds from 260 pounds, 2 months ago. She has gained 6 pounds in 2 months. Her body mass index is 48.8. She is 131 pounds overweight. PAST MEDICAL HISTORY: 1. Morbid obesity due to excess calories 2. Body mass index of 48.8 3. Gastroesophageal reflux disease. 4. Colitis 5. Hyperlipidemia 6. Osteoarthritis of the back 7. Osteoarthritis of the hips 8. Osteoarthritis of the knees 9. Hypertensive heart disease. PAST SURGICAL HISTORY: 1. Left breast biopsy 2. Hysterectomy 3. Tonsillectomy 4. Thyroid surgery HOME MEDICATIONS: Home Medications Medication Instructions Recorded Confirmed Aspirin [Adult Low Dose Aspirin EC] 81 mg PO DAILY 09/11/20 09/11/20 Atorvastatin [Lipitor] 20 mg PO DAILY 09/11/20 09/11/20 Cholecalciferol [Vitamin D3 (25 50 mcg PO DAILY 09/11/20 09/11/20 Mcg = 1000 Iu)] FLUoxetine HCL 20 mg PO DAILY 09/11/20 09/11/20 Furosemide [Lasix] 20 mg PO DAILY 09/11/20 09/11/20 Losartan Potassium [Cozaar] 100 mg PO DAILY 09/11/20 09/11/20 Metoprolol Tartrate [Lopressor] 25 mg PO BID 09/11/20 09/11/20 Vitamin E (Dl,Tocopheryl Acet) 400 unit PO DAILY 09/11/20 09/11/20 [Vitamin E] ALLERGIES: Allergies Allergy/AdvReac Type Severity Reaction Status Date / Time No Known Allergies Allergy Verified 09/11/20 11:06 SOCIAL HISTORY: Past tobacco use. FAMILY HISTORY: No family history of ulcerative colitis disease or Crohn's disease. Family history of morbid obesity. No lupus in the family. No reports of stomach or esophageal cancer. REVIEW OF ORGAN SYSTEMS: CONSTITUTIONAL: At height of 5 feet 2 inches, her ideal body weight is 135 pounds. She comes in 260 pounds. Her body mass index is 47.7. She is 125 pounds overweight. HEENT: Denies any active troubles with vision or hearing. ENDOCRINE: No diabetes. Has thyroid disorder. CARDIOVASCULAR: No past reports of palpitations or heart attacks or chest pain. Has hypertensive heart disease. Has hyperlipidemia. RESPIRATORY: Has daytime somnolence. Denies asthma GASTROINTESTINAL: Denies any bright red blood per rectum. No diarrhea. No constipation. Has gastroesophageal reflux disease. GENITOURINARY: Denies bladder urgency. No recent blood in urine. Past cervical cancer. MUSCULOSKELETAL: Has lower back pain and joint pain. Has osteoarthritis of the knees. NEURO: No headaches. No seizure disorders. PSYCH: Has depression. No suicidal ideation. RHEUMATOLOGIC: No lupus. No rheumatoid arthritis. HEMATOLOGIC: Denies any abnormal bleeding. Has bruising. SKIN: No rash. No skin cancer. PHYSICAL EXAM: VITAL SIGNS: Height 5 foot 2 inches, weight 266 pounds. BMI 48.8 GENERAL: Well-developed in no acute distress. HEENT: No scleral icterus. Extraocular movements grossly intact. Hears conversational speech. No nasal drainage. NECK: Supple without lymphadenopathy. CHEST: Nonlabored respirations with equal bilateral excursions. CARDIOVASCULAR: Regular rate and regular rhythm. Distal 2+ pulses. ABDOMEN: Obese, soft, nontender, nondistended. MUSCULOSKELETAL: No clubbing, cyanosis. NEURO: No focal or lateralizing signs. Cranial nerves 2 through 12 grossly within normal limits. PSYCH: Appropriate affect. Alert and oriented to person, place and time. SKIN: Good skin turgor. Well perfused. LABS: Hemoglobin low, total protein is low, Vitamin A is low, PTH is elevated EGD FINDINGS: Squamocolumnar junction 37 cm from the incisors. Diaphragmatic hiatus at 40 cm. Hiatal hernia, 3 cm Hill grade 3 lower esophageal valve. LA grade B erosive esophagitis. No active duodenitis. Chronic gastritis Final Pathologic Diagnosis GASTRIC ANTRUM, BIOPSY: Benign gastric mucosa without significant histopathologic changes. ASSESSMENT: 1. Morbid obesity due to excess calories 2. Body mass index of 48.8 3. Gastroesophageal reflux disease. 4. Colitis 5. Hyperlipidemia 6. Osteoarthritis of the back 7. Osteoarthritis of the hips 8. Osteoarthritis of the knees 9. Hypertensive heart disease. 10. Vitamin A deficiency 11. Anemia 12. Secondary hyperparathyroidism 13. Hiatal hernia PLAN: 1. Bariatric options between a sleeve, band and a Abdulaziz-en-Y gastric bypass were reviewed in detail. The patient elected for a sleeve gastrectomy. Robotic assisted approach described. 2. The [place] [facility] Data was also reviewed with benefits and risks as described. 3. An 8 page second-generation bariatric consent form was reviewed in detail including potential of bleeding, infection, leaks, adequate weight loss, nutritional deficiencies which the patient demonstrated understanding of the risks. 4. A 2 week high-protein low caloric 800 kcal diet described to address hepatomegaly. 5. Preoperative labs including complete metabolic panel and CBC with type and screen recommended. 6. DVT prophylaxis per [place] [facility]. 7. Antibiotic prophylaxis. 8. Inpatient hospitalization anticipated for more than 2 nights. 9. All questions and concerns were addressed with the patient. 10. Overall, patient has expressed understanding of bariatric care including postoperative diet and commitment of lifestyle. Patient should benefit from surgical intervention for correction of her morbid obesity. Past Medical History Past Medical History: Cancer, Hypertension, Osteoarthritis (OA), Thyroid Disorder Additional Past Medical History / Comment(s): cervical cancer 2003, small hiatal hernia, History of Any Multi-Drug Resistant Organisms: None Reported Past Surgical History: Breast Surgery, Hysterectomy, Orthopedic Surgery, Tonsillectomy Additional Past Surgical History / Comment(s): partial thyroidectomy, bone removed left small toe, left breast biopsy Past Anesthesia/Blood Transfusion Reactions: No Reported Reaction Smoking Status: Former smoker - Past Family History Mother Family Medical History: No Reported History Father History Unknown: Yes Family Medical History: Unable to Obtain Medications and Allergies Home Medications Medication Instructions Recorded Confirmed Type Aspirin [Adult Low Dose Aspirin EC] 81 mg PO DAILY 09/11/20 02/26/21 History Atorvastatin [Lipitor] 20 mg PO HS 09/11/20 02/26/21 History Cholecalciferol [Vitamin D3 (25 50 mcg PO DAILY 09/11/20 02/26/21 History Mcg = 1000 Iu)] FLUoxetine HCL [Sarafem] 20 mg PO HS 09/11/20 02/26/21 History Furosemide [Lasix] 20 mg PO DAILY 09/11/20 02/26/21 History Losartan Potassium [Cozaar] 100 mg PO QAM 09/11/20 02/26/21 History Metoprolol Tartrate [Lopressor] 25 mg PO BID 09/11/20 02/26/21 History Vitamin E (Dl,Tocopheryl Acet) 400 unit PO DAILY 09/11/20 02/26/21 History [Vitamin E (400 Iu = 180 mg)] Pantoprazole [Protonix] 40 mg PO DAILY 02/04/21 02/26/21 History Allergies Allergy/AdvReac Type Severity Reaction Status Date / Time No Known Allergies Allergy Verified 02/26/21 11:05
[2021-03-02] MEDS: LACTATED RINGERS 1,000 ML IV SCH (10:15)
[2021-03-02] MEDS ORDERED: MIDAZOLAM 2 MG/2 ML VIAL IVP ONE (10:58)
[2021-03-02] MEDS ORDERED: GLYCOPYRROLATE 0.2 MG/ML 2 ML VIAL ONE (11:20)
[2021-03-02] MEDS ORDERED: NEOSTIGMINE 1 MG/ML 10 ML VIAL ONE (11:20)
[2021-03-02] MEDS ORDERED: fentaNYL (PF) 50 MCG/ML 2 ML AMP ONE (11:20)
[2021-03-02] MEDS ORDERED: MIDAZOLAM 2 MG/2 ML VIAL ONE (11:20)
[2021-03-02] MEDS ORDERED: LIDOCAINE 1% INJ 10MG/ML (20 ML MDV) ONE (11:20)
[2021-03-02] MEDS ORDERED: PROPOFOL 10 MG/ML 20 ML VIAL IV ONE (11:20)
[2021-03-02] MEDS ORDERED: SUCCINYLCHOLINE CHLORIDE 100 MG/5 ML SYR IV ONE (11:20)
[2021-03-02] MEDS ORDERED: HYDROmorphone (PF) 1 MG/ML ONE (11:20)
[2021-03-02] MEDS ORDERED: KETAMINE 10 MG/ML 20 ML VIAL ONE (11:20)
[2021-03-02] MEDS ORDERED: ROCURONIUM 10 MG/ML (5 ML VIAL) IV ONE (11:20)
[2021-03-02] MEDS ORDERED: ePHEDrine SULFATE/0.9% NACL/PF 50 MG/5 ML SYRINGE IV ONE (11:20)
[2021-03-02] MEDS ORDERED: LIDOCAINE 1%-EPI 1:100,000 20 ML VIAL SQ ONE ×2 (11:56→12:12)
[2021-03-02] MEDS ORDERED: diphenhydrAMINE 50 MG/ML 1 ML VIAL IVP PRN (13:39)
[2021-03-02] MEDS ORDERED: NALOXONE 0.4 MG/ML 1 ML VIAL IV PRN (13:39)
[2021-03-02] MEDS ORDERED: DEXAMETHASONE SOD PHOSPHATE 10 MG/ML 1 ML VIAL IV PRN (13:41)
--- NOTE | 2021-03-02 13:46 | P.OP ---
Date of Procedure: 03/02/21 Description of Procedure: SURGEON: PARIS BOWLES MD PREOPERATIVE DIAGNOSES: 1. Morbid obesity due to excess calories 2. Body mass index of 48.8 , initial 3. Gastroesophageal reflux disease. 4. Colitis 5. Hyperlipidemia 6. Osteoarthritis of the back 7. Osteoarthritis of the hips 8. Osteoarthritis of the knees 9. Hypertensive heart disease. 10. Vitamin A deficiency 11. Anemia 12. Secondary hyperparathyroidism 13. Hiatal hernia POSTOPERATIVE DIAGNOSES: 1. Morbid obesity due to excess calories 2. Body mass index of 48.8 , initial 3. Gastroesophageal reflux disease. 4. Colitis 5. Hyperlipidemia 6. Osteoarthritis of the back 7. Osteoarthritis of the hips 8. Osteoarthritis of the knees 9. Hypertensive heart disease. 10. Vitamin A deficiency 11. Anemia 12. Secondary hyperparathyroidism 13. Hiatal hernia OPERATION: 1. Robotic assisted daVinci Xi laparoscopic sleeve gastrectomy with 40-Hong Konger bougie, multiport. 2. Intraoperative esophagogastroduodenoscopy. ANESTHESIA: Gen. local anesthetic ESTIMATED BLOOD LOSS: 10 mL SPECIMENS REMOVED: Sleeve gastrectomy COMPLICATIONS: None. FINDINGS: 1. Negative intraoperative esophagogastrojejunoscopy leak test. 2. No hepatomegaly and no large hiatus hernia. 3. Total of 6 staplers used including 2 - 60 mm green robot lacie and 4 - 60 mm blue robot loads used to create the gastric sleeve. 4. Sleeve gastrectomy, 29 x 4 cm INDICATIONS: Tim Dodson is a 55-year-old female who comes with lifelong morbid obesity. She comes in looking into the sleeve gastrectomy. As a result of her morbid obesity, she has developed sleep apnea, osteoarthritis of the lower back pain, hip pain, knee pain, including hypertensive heart disease. At height of 5 feet 2 inches, her ideal body weight is 135 pounds. She comes in 257 pounds from 266 pounds, 3 months ago. She has lost 9 pounds in 3 months. Her body mass index is 45.7. She is 122 pounds overweight. All surgical options for morbid obesity had been described using the [place] [facility] collaborative comorbidity resolution including complication risk score. A second-generation bariatric consent form was described in detail including the possibility of protein malnutrition, leaks, gastric stricture, venous thrombosis, gastroesophageal reflux disease, need for further surgery for which she demonstrated understanding. Benefits and risks of the procedure were described at length. Informed consent was obtained. DESCRIPTION: The patient was brought into the operating room theater. Preoperatively she had received Lovenox subcutaneously for DVT prophylaxis. Additionally she had Peridex oral solution as an oral decontaminant. After general induction, the abdomen was prepped and draped in standard sterile fashion. An Ioban draping was placed along the abdomen. A robotic da Ad Xi system was prepped and primed. At 13 cm from the xiphoid, proposed port sites were marked with indelible marker along the anterior axillary line bilaterally, mid axillary line bilaterally with each ports were marked 10 to 15 cm from each other. The gynecological assistant port was marked along the left lateral abdominal wall. The robotic stapler port was marked for the right midclavicular line. A 5 mm 0 degrees laparoscopic trocar entry was performed along the left upper quadrant. The abdomen was insufflated to 15 mmHg pressure was tolerated well. Diagnostic laparoscopy demonstrated no injury to bowel, viscera, or mesentery. No evidence of large hiatus hernia was identified. The liver edge was sharp consistent with 2 week low-carb high-protein diet. A 8 mm port was placed along the left upper abdominal wall after exchanging the 5 mm port. A separate 8 mm port was placed along the left lateral abdominal wall. Please note that the ports were placed at least 20 cm away from the target anatomy. Care was taken to check each robotic arms were safely away from collision with the bed or the patient. At the epigastrium, a medium sized Alfredo liver retractor was placed under direct visualization with the [place] [employer] Judge placed under the right shoulder of the patient. Next, 12-mm robot stapler port was placed along the right upper quadrant. The camera 8-mm port was maintained along the epigastrium. The patient was repositioned in reverse Trendelenburg position at 21-degrees after lowering the bed. The robot was docked along the left side of the patient. Using a grasper for arm 4, a vessel sealer for arm 3, including grasper for arm 1, the robotic system was docked and primed as described. Instruments were interchanged by the gynecological assistant for stapler loads. The camera was placed at 30- degrees down. I had sat at the console. The pylorus was identified and 6 cm proximally along the greater curvature of the stomach, the short gastrics were mobilized upwards to the angle of His using a vessel sealer. Hemostasis was excellent during this portion of the procedure. Next, the upper pole of the stomach was adherent to the left wolfgang, which was gently dissected free using atraumatic grasper. I went to the head of the bed and placed 40-H[place] Konger blunt bougie into the stomach. The bougie was readjusted by the nurse care program director. Robotic stapler green load 60 mm 2 followed by blue 60 mm x 4 loads were used to create the sleeve. Initial firing was across the antrum of the stomach towards the angle of His. The staple line was linear without corkscrewing. The space from the angularis incisura of the sleeve was approximately 4 cm. I then went to the head of the bed to perform the intraoperative esophagogastroduodenoscopy leak test. The bougie was withdrawn. The upper pole of the stomach was bathed using normal saline solution. The scope was withdrawn with careful inspection along the staple line for which no leaks were found along the entire length. Additionally,the sleeve was completely hemostatic wi thout any encroachment along the angularis incisura. Its topology was a soft "J". No stricture was encountered upon placement of the scope. The GI tract was desufflated. The patient tolerated this portion of the procedure well. The scope was completely withdrawn. The robot was undocked. I then rescrubbed into case, whereby the irrigation fluid was aspirated from the abdominal cavity. Tisseel fibrin sealant was placed along the entire staple length. Once dried the Alfredo liver retractor was removed. Attention was now brought to removal of the specimen. The distal end of the sleeve gastrectomy specimen was brought out through the 12 mm port at the left upper quadrant. The specimen was gently removed en total. No contamination had occurred during this process. All instruments and pneumoperitoneum including irrigation fluid was removed from the abdominal cavity. The 12 mm port site was closed using 0-Vicryl and Gonzalo Coronado and irrigated with diluted hydrogen peroxide. The final incisions were closed using subcuticular interrupted suture of 4-0 Monocryl. Exofin was applied to the skin once the skin had been cleansed. OptiFoam dressing was placed along the stomach extraction site. The sleeve specimen was measured and checked also for leaks which none were found. At the end of the procedure, needle, sponge, and instrument count was verified correct by the certified surgical first assistant. The patient was taken to the postanesthesia care unit in stable condition. She had tolerated the procedure well. Intraoperative films and findings were reviewed with the patient's family.
[2021-03-02] MEDS: HYDROmorphone 0.5 MG/0.5 ML SYRINGE IVP PRN ×2 (13:50→14:02)
[2021-03-02] MEDS ORDERED: SODIUM CHLORIDE 0.9% 1,000 ML IV ONE (14:41)
[2021-03-02] MEDS: ALBUTEROL NEBULIZED 2.5 MG/3 ML INHALATION SCH ×2 (16:05→21:03)
[2021-03-02] MEDS: ONDANSETRON 4 MG/2 ML VIAL IVP SCH ×2 (16:55→23:10)
[2021-03-02] MEDS: DEXAMETHASONE SOD PHOSPHATE 4 MG/ML 1 ML VIAL IV SCH ×2 (16:56→23:10)
[2021-03-02] MEDS: ACETAMINOPHEN IV (For NPO) 1,000 MG in EMPTY BAG 1 BAG IVPB SCH ×2 (16:58→23:09)
[2021-03-02] MEDS: 0.9% NACL WITH KCL 20 MEQ/L 1,000 ML IV SCH ×2 (16:58→21:16)
[2021-03-02] MEDS: HYOSCYAMINE ORAL DROPS 1.875 MG/15 ML BOTTLE PO SCH ×2 (17:03→23:10)
[2021-03-02] MEDS: SIMETHICONE 40 MG/0.6 ML DROPS 2,000 MG/30 ML BOTTLE PO SCH ×2 (17:05→23:10)
[2021-03-02] MEDS: HYDROmorphone 1 MG/ML 1 ML SYRINGE IVP PRN (19:16)
[2021-03-02] MEDS ORDERED: FLUoxetine HCL 20 MG CAP PO SCH (21:00)
[2021-03-02] MEDS: METOPROLOL TARTRATE 25 MG TAB PO SCH (21:16)
[2021-03-02] MEDS ORDERED: LORazepam 2 MG/ML INJ IV PRN (21:28)
[2021-03-02 22:48] VITALS: RESP 16
[2021-03-03] MEDS: HYDROmorphone 1 MG/ML 1 ML SYRINGE IVP PRN ×2 (03:05→08:06)
[2021-03-03] MEDS: 0.9% NACL WITH KCL 20 MEQ/L 1,000 ML IV SCH (03:07)
[2021-03-03] MEDS: DEXAMETHASONE SOD PHOSPHATE 4 MG/ML 1 ML VIAL IV SCH ×2 (05:18→11:20)
[2021-03-03] MEDS: ONDANSETRON 4 MG/2 ML VIAL IVP SCH ×2 (05:18→11:19)
[2021-03-03] MEDS: HYOSCYAMINE ORAL DROPS 1.875 MG/15 ML BOTTLE PO SCH ×2 (05:18→11:20)
[2021-03-03] MEDS: SIMETHICONE 40 MG/0.6 ML DROPS 2,000 MG/30 ML BOTTLE PO SCH ×2 (05:18→11:21)
[2021-03-03] MEDS: ACETAMINOPHEN IV (For NPO) 1,000 MG in EMPTY BAG 1 BAG IVPB SCH ×2 (05:18→11:19)
[2021-03-03] MEDS: LACTATED RINGERS 1,000 ML IV SCH (07:22)
[2021-03-03] MEDS: ALBUTEROL NEBULIZED 2.5 MG/3 ML INHALATION SCH ×2 (07:31→11:23)
[2021-03-03] MEDS ORDERED: ENOXAPARIN 40 MG/0.4 ML SYRINGE SQ SCH (09:00)
[2021-03-03] MEDS ORDERED: ASPIRIN 81 MG PO SCH (09:00)
[2021-03-03] MEDS ORDERED: PANTOPRAZOLE 40 MG/10 ML VIAL IV SCH (09:00)
[2021-03-03] MEDS ORDERED: LOSARTAN 50 MG TAB PO SCH (09:00)
--- NOTE | 2021-03-03 09:38 | FL ---
EXAMINATION TYPE: FL UGI DATE OF EXAM: 03/03/2021 CLINICAL HISTORY: Status post gastric sleeve Contrast: Omnipaque 350 50 mL The patient ingested contrast without difficulty or delay. Noted are postsurgical changes of gastric sleeve. There is no evidence for leak or obstruction. Contrast is noted within the duodenum. IMPRESSION: Post-surgical change of gastric sleeve without evidence for obstruction or leak at this point in time.
[2021-03-03] MEDS: METOPROLOL TARTRATE 25 MG TAB PO SCH (09:53)
[2021-03-03] MEDS ORDERED: SODIUM CHLORIDE 0.9% 2,000 ML IV ONE (11:40)
[2021-03-03 12:41] VITALS: BMI 45.6
[2021-03-03 12:56] LABS: Basophils # (A) 0.01 X 10*3/uL (0.00-0.10); Basophils % (A) 0.1 %; Eosinophils # (A) 0 X 10*3/uL (0.04-0.35); Eosinophils % (A) 0 %; HCT 39.9 % (37.2-46.3); HGB 13.3 g/dL (12.0-15.0); Lymphocytes # (A) 0.46 X 10*3/uL (0.90-5.00); Lymphocytes % (A) 6.9 %; MCH 30.2 pg (27.0-32.0); MCHC 33.3 g/dL (32.0-37.0); MCV 90.7 fL (80.0-97.0); Mean Platelet Volume 10.9 fL (9.5-12.2); Monocytes # (A) 0.16 X 10*3/uL (0.20-1.00); Monocytes % (A) 2.4 %; Neutrophils # (A) 6.03 X 10*3/uL (1.80-7.70); Neutrophils % (A) 90.3 %; Platelet Count 195 X 10*3/uL (140-440); RDW 13.1 % (11.5-14.5); WBC 6.68 X 10*3/uL (4.50-10.00)
--- NOTE | 2021-03-03 13:49 | P.DS ---
Providers Date of admission: 03/02/21 09:35 Expected date of discharge: 03/03/21 Attending physician: Radha Leon Primary care physician: Chip Whitman Hospital Course: Discharge diagnosis 1. Morbid obesity due to excess calories 2. Body mass index of 48.8 , initial 3. Gastroesophageal reflux disease. 4. Colitis 5. Hyperlipidemia 6. Osteoarthritis of the back 7. Osteoarthritis of the hips 8. Osteoarthritis of the knees 9. Hypertensive heart disease. 10. Vitamin A deficiency 11. Anemia 12. Secondary hyperparathyroidism 13. Hiatal hernia Hospital course Tim Dodson is a 55-year-old female who comes with lifelong morbid obesity. She comes in looking into the sleeve gastrectomy. As a result of her morbid obesity, she has developed sleep apnea, osteoarthritis of the lower back pain, hip pain, knee pain, including hypertensive heart disease. Patient is status post Robotic assisted daVinci Xi laparoscopic sleeve gastrectomy. Patient tolerated surgery well. Her upper GI was completed showing no evidence of leak or obstruction. Patient tolerating bariatric clear liquid diet. She is having flatus. She is up and ambulating. Her pain is controlled. She is afebrile. She is stable for discharge. Physician Manager Of Selection And Assessment note has been reviewed by physician. Signing provider agrees with the documented findings, assessment, and plan of care. Patient Condition at Discharge: Stable Plan - Discharge Summary Discharge Rx Participant: Yes New Discharge Prescriptions: New bisacodyL [Dulcolax] 5 mg PO DAILY PRN #10 tablet. PRN Reason: Constipation Simethicone 40 mg/0.6 ml Drops [Mylicon Drops] 40 mg PO PCHS PRN #30 ml PRN Reason: Gas Ondansetron Odt [Zofran Odt] 4 mg PO Q8HR PRN #9 tab PRN Reason: Nausea Acetaminophen Oral Susp [Tylenol] 1,000 mg PO Q6H PRN #400 ml PRN Reason: Pain Continue Losartan Potassium [Cozaar] 100 mg PO QAM FLUoxetine HCL [Sarafem] 20 mg PO HS Aspirin [Adult Low Dose Aspirin EC] 81 mg PO DAILY Metoprolol Tartrate [Lopressor] 25 mg PO BID Pantoprazole [Protonix] 40 mg PO DAILY Discontinued Vitamin E (Dl,Tocopheryl Acet) [Vitamin E (400 Iu = 180 mg)] 400 unit PO DAILY Cholecalciferol [Vitamin D3 (25 Mcg = 1000 Iu)] 50 mcg PO DAILY Atorvastatin [Lipitor] 20 mg PO HS Furosemide [Lasix] 20 mg PO DAILY Discharge Medication List Aspirin [Adult Low Dose Aspirin EC] 81 mg PO DAILY 09/11/20 [History] FLUoxetine HCL [Sarafem] 20 mg PO HS 09/11/20 [History] Losartan Potassium [Cozaar] 100 mg PO QAM 09/11/20 [History] Metoprolol Tartrate [Lopressor] 25 mg PO BID 09/11/20 [History] Pantoprazole [Protonix] 40 mg PO DAILY 02/04/21 [History] Acetaminophen Oral Susp [Tylenol] 1,000 mg PO Q6H PRN #400 ml 03/03/21 [Rx] Ondansetron Odt [Zofran Odt] 4 mg PO Q8HR PRN #9 tab 03/03/21 [Rx] Simethicone 40 mg/0.6 ml Drops [Mylicon Drops] 40 mg PO PCHS PRN #30 ml 03/03/21 [Rx] bisacodyL [Dulcolax] 5 mg PO DAILY PRN #10 tablet. 03/03/21 [Rx] [place] [facility]Ref[place] [facility] [place]21 9:00 am Activity/Diet/Wound Care/Special Instructions: No lifting over 4 pounds You may shower. No soaking or tub baths Very light activity until you are reevaluated at your follow up appointment with your surgeon Continue liquid diet per bariatric center schedule No straws or carbonated beverages Avoid beverages with greater than 6 g of sugar per serving to avoid dumping syndrome Open or crush all medications greater than the size of a tic-tac No oral vitamins until reevaluated by Dr. Leon Continue to monitor blood pressures at home Discharge Disposition: HOME SELF-CARE
[2021-03-03 14:21] VITALS: BP 116/71; PULSE 74; TEMP 98.3
[2021-03-03 16:29] LABS: African American GFR (CKD) 96.9 (60.0-200.0); Anion Gap 10.1 mmol/L (4.00-12.00); Calcium 8.6 mg/dL (8.7-10.3); Carbon Dioxide 20.9 mmol/L (21.6-31.8); Magnesium 1.7 mg/dL (1.5-2.4); Non-African American GFR(CKD) 83.6 (60.0-200.0); Potassium 4.7 mmol/L (3.5-5.5)
[2021-03-04] MEDS ORDERED: bisacodyL 5 MG TABLET.DR PO PRN (08:00)
== END 2021-03-03 15:10 | disposition home or self-care (01) | DRG 620 ==
LOC: 2ORMAIN 03-02 09:35 → 4SSUR 03-02 14:04
PROVIDERS: ADMIT Surgery Plastic and Reconstructive Surgery; ATTEND Surgery Plastic and Reconstructive Surgery
PROC: 0DJ08ZZ Inspection of Upper Intestinal Tract, Via Natural or Artificial Opening Endoscopic (ICD-10-PCS; 2021-03-02)
PROC: 0DB64Z3 Excision of Stomach, Percutaneous Endoscopic Approach, Vertical (ICD-10-PCS; principal; 2021-03-02 10:55)
DX: E66.01 Morbid (severe) obesity due to excess calories (principal); N25.81 Secondary hyperparathyroidism of renal origin; Z68.42 Body mass index [BMI] 45.0-49.9, adult; K21.9 Gastro-esophageal reflux disease without esophagitis; E78.5 Hyperlipidemia, unspecified; M16.0 Bilateral primary osteoarthritis of hip; M17.0 Bilateral primary osteoarthritis of knee; I11.9 Hypertensive heart disease without heart failure; K52.9 Noninfective gastroenteritis and colitis, unspecified; E50.9 Vitamin A deficiency, unspecified; D64.9 Anemia, unspecified; K44.9 Diaphragmatic hernia without obstruction or gangrene; Z79.82 Long term (current) use of aspirin; Z85.41 Personal history of malignant neoplasm of cervix uteri; Z87.891 Personal history of nicotine dependence; G47.30 Sleep apnea, unspecified; Z90.710 Acquired absence of both cervix and uterus; Z79.899 Other long term (current) drug therapy; M47.9 Spondylosis, unspecified
CPT/HCPCS: 74240; 80051; 82310; 82565; 83735; 84100; 84520; 85025; 86850; 86900; 86901; 88307; 94640; 94760

== ENCOUNTER → 2021-02-24 | Outpatient (CLI) | payer BC ==
[2021-02-24 13:08] LABS: Basophils % (A) 1 %; Eosinophils # (A) 0.2 k/uL (0-0.7); Eosinophils % (A) 5 %; HCT 44.5 % (34.0-46.0); HGB 14.8 gm/dL (11.4-16.0); Lymphocytes # (A) 1.6 k/uL (1.0-4.8); Lymphocytes % (A) 42 %; MCH 29.9 pg (25.0-35.0); MCHC 33.2 g/dL (31.0-37.0); MCV 90.2 fL (80.0-100.0); Mean Platelet Volume 7.4; Monocytes # (A) 0.3 k/uL (0-1.0); Monocytes % (A) 9 %; Neutrophils # (A) 1.5 k/uL (1.3-7.7); Neutrophils % (A) 41 %; Platelet Count 187 k/uL (150-450); RBC 4.93 m/uL (3.80-5.40); RDW 12.7 % (11.5-15.5); WBC 3.7 k/uL (3.8-10.6)
[2021-02-24 13:28] LABS: ALT 26 U/L (4-34); AST 28 U/L (14-36); African American GFR (CKD) >90 (>60 ml/min/1.73 sqM); Albumin 3.9 g/dL (3.5-5.0); Alkaline Phosphatase 69 U/L (38-126); Anion Gap 5 mmol/L; Blood Urea Nitrogen 16 mg/dL (7-17); Calcium 9.1 mg/dL (8.4-10.2); Carbon Dioxide 29 mmol/L (22-30); Chloride 105 mmol/L (98-107); Glucose 126 mg/dL (74-99); Non-African American GFR(CKD) >90 (>60 ml/min/1.73 sqM); Sodium 139 mmol/L (137-145); Total Bilirubin 0.4 mg/dL (0.2-1.3); Total Protein 6.3 g/dL (6.3-8.2)
== END | disposition home or self-care (01) ==
LOC: LABPAT 12:06
PROVIDERS: ATTEND Surgery Plastic and Reconstructive Surgery
DX: Z01.812 Encounter for preprocedural laboratory examination (principal)
CPT/HCPCS: 36415; 80053; 85025

== ENCOUNTER → 2021-03-06 | Outpatient (CLI) | payer BC ==
--- NOTE | 2021-03-06 09:45 | P.PN ---
Subjective Progress Note Date: 03/06/21 DATE OF SERVICE: 03/06/2021 CHIEF COMPLAINT: Status sleeve gastrectomy HISTORY OF PRESENT ILLNESS: Tim Dodson is a 55-year-old female who comes with lifelong morbid obesity. She is status post sleeve gastrectomy, 03/02/2021. She is 4 days out from sleeve gastrectomy and doing well. Her diuretics were held due to risk of dehydration. She reports pre-existing swelling of the legs. Pain is well controlled. No nausea or vomiting. Images of surgery reviewed. At height of 5 feet 2 inches, her ideal body weight is 135 pounds. Her highest weight is 266 pounds, body mass index 48.8 She comes in 261 pounds from 266 pounds, 1 month ago. She has lost 5 pounds in 1 month. Lifetime weight loss of 5 pounds. Percent excess weight loss of 3%. Her body mass index is 47.9. She is 126 pounds overweight. PHYSICAL EXAM: VITAL SIGNS: Height 5 foot 2 inches, weight 261 pounds. BMI 47.9 Vital Signs Temp 98 F 03/06/21 11:16 Pulse 52 L 03/06/21 11:16 Resp BP 144/85 03/06/21 11:16 Pulse Ox GENERAL: Well-developed in no acute distress. HEENT: No scleral icterus. Extraocular movements grossly intact. Hears conversational speech. No nasal drainage. NECK: Supple without lymphadenopathy. CHEST: Nonlabored respirations with equal bilateral excursions. CARDIOVASCULAR: Regular rate and regular rhythm. Distal 2+ pulses. ABDOMEN: Incisions intact. No cellulitis MUSCULOSKELETAL: No clubbing, cyanosis. NEURO: No focal or lateralizing signs. Cranial nerves 2 through 12 grossly within normal limits. PSYCH: Appropriate affect. Alert and oriented to person, place and time. SKIN: Good skin turgor. Well perfused. ASSESSMENT: 1. Morbid obesity due to excess calories 2. Body mass index of 48.8 3. Gastroesophageal reflux disease. 4. Colitis 5. Hyperlipidemia 6. Osteoarthritis of the back 7. Osteoarthritis of the hips 8. Osteoarthritis of the knees 9. Hypertensive heart disease. 10. Vitamin A deficiency 11. Anemia 12. Secondary hyperparathyroidism 13. Hiatal hernia 14. Status post sleeve gastrectomy PLAN: 1. She reports pre-existing swelling of the legs. She is advised to take her diuretic cautiously. 2. Risks and symptoms of dehydration reviewed including headaches, muscle ache reviewed. 3. Protonix for GI protectant prescribed. 4. Follow-up in the office 1 week.
[2021-03-06 11:23] VITALS: BP 144/85; PULSE 52; TEMP 98; BMI 47.9
== END | disposition home or self-care (01) ==
LOC: BARWHC3 08:47
PROVIDERS: ATTEND Surgery Plastic and Reconstructive Surgery
DX: E66.01 Morbid (severe) obesity due to excess calories (principal); K21.9 Gastro-esophageal reflux disease without esophagitis; K52.9 Noninfective gastroenteritis and colitis, unspecified; E78.5 Hyperlipidemia, unspecified; M16.0 Bilateral primary osteoarthritis of hip; M17.0 Bilateral primary osteoarthritis of knee; I11.9 Hypertensive heart disease without heart failure; E50.9 Vitamin A deficiency, unspecified; D64.9 Anemia, unspecified; N25.81 Secondary hyperparathyroidism of renal origin; K44.9 Diaphragmatic hernia without obstruction or gangrene; Z98.84 Bariatric surgery status; Z68.42 Body mass index [BMI] 45.0-49.9, adult
CPT/HCPCS: 99211

== ENCOUNTER → 2021-03-11 | Outpatient (CLI) | payer BC ==
[2021-03-11 13:56] VITALS: BP 101/69; PULSE 59; RESP 18; TEMP 97.2; BMI 45.7
--- NOTE | 2021-03-11 14:23 | P.PN ---
Subjective Progress Note Date: 03/11/21 DATE OF SERVICE: 03/11/2021 CHIEF COMPLAINT: Status sleeve gastrectomy HISTORY OF PRESENT ILLNESS: Tim Dodson is a 55-year-old female who comes with lifelong morbid obesity. She is status post sleeve gastrectomy, 03/02/2021. She is 1 week out. She is off her diuretic. Her blood pressure is excellent. She denies gastroesophageal reflux disease. She has lost 12 pounds in 1 week. At height of 5 feet 2 inches, her ideal body weight is 135 pounds. Her highest weight is 266 pounds, body mass index 48.8 She comes in 249 pounds from 261 pounds, 1 week ago. She has lost 12 pounds in 1 week. Lifetime weight loss of 17 pounds. Percent excess weight loss of 13%. Her body mass index is 45.7. She is 114 pounds overweight. PHYSICAL EXAM: VITAL SIGNS: Height 5 foot 2 inches, weight 249 pounds. BMI 45.7 Vital Signs Temp 97.2 F L 03/11/21 13:48 Pulse 59 L 03/11/21 13:48 Resp 18 03/11/21 13:48 BP 101/69 03/11/21 13:48 Pulse Ox GENERAL: Well-developed in no acute distress. HEENT: No scleral icterus. Extraocular movements grossly intact. Hears conversational speech. No nasal drainage. NECK: Supple without lymphadenopathy. CHEST: Nonlabored respirations with equal bilateral excursions. CARDIOVASCULAR: Regular rate and regular rhythm. Distal 2+ pulses. ABDOMEN: Incisions intact. No hernias. No infections. MUSCULOSKELETAL: No clubbing, cyanosis. NEURO: No focal or lateralizing signs. Cranial nerves 2 through 12 grossly within normal limits. PSYCH: Appropriate affect. Alert and oriented to person, place and time. SKIN: Good skin turgor. Well perfused. ASSESSMENT: 1. Morbid obesity due to excess calories 2. Body mass index of 48.8 to 45.7 3. Gastroesophageal reflux disease. 4. Colitis 5. Hyperlipidemia 6. Osteoarthritis of the back 7. Osteoarthritis of the hips 8. Osteoarthritis of the knees 9. Hypertensive heart disease. 10. Vitamin A deficiency 11. Anemia 12. Secondary hyperparathyroidism 13. Hiatal hernia 14. Status post sleeve gastrectomy PLAN: 1. Recommend to be off her diuretic for risk of dehydration. 2. Recommend food diary journal. 3. She needs prior authorization for protonix. Objective - Vital Signs Vital signs: Vital Signs Temp 97.2 F L 03/11/21 13:48 Pulse 59 L 03/11/21 13:48 Resp 18 03/11/21 13:48 BP 101/69 03/11/21 13:48 Pulse Ox Intake & Output 03/10/21 03/11/21 03/11/21 18:59 06:59 18:59 Weight 113.398 kg
--- NOTE | 2021-03-11 14:26 | P.PN ---
Progress Note - Text Progress Note Date: 03/11/21 To whom it may concern: Tim Dodson is under my surgical care. She may return to work without restrictions, March 30, 2021. Regards, Radha Leon MD FACS
== END | disposition home or self-care (01) ==
LOC: BARWHC3 13:21
PROVIDERS: ATTEND Surgery Plastic and Reconstructive Surgery
DX: E66.01 Morbid (severe) obesity due to excess calories (principal); K21.9 Gastro-esophageal reflux disease without esophagitis; K52.9 Noninfective gastroenteritis and colitis, unspecified; E78.5 Hyperlipidemia, unspecified; M16.0 Bilateral primary osteoarthritis of hip; M17.0 Bilateral primary osteoarthritis of knee; I11.9 Hypertensive heart disease without heart failure; E50.9 Vitamin A deficiency, unspecified; D64.9 Anemia, unspecified; N25.81 Secondary hyperparathyroidism of renal origin; K44.9 Diaphragmatic hernia without obstruction or gangrene; Z98.84 Bariatric surgery status; Z68.42 Body mass index [BMI] 45.0-49.9, adult
CPT/HCPCS: 97803; 99211

== ENCOUNTER → 2021-03-25 | Outpatient (CLI) | payer BC ==
[2021-03-25 13:48] VITALS: BP 107/56; PULSE 59; RESP 18; TEMP 98; BMI 45.1
--- NOTE | 2021-03-25 14:27 | P.PN ---
Subjective Progress Note Date: 03/25/21 She feels better. She has more energy. She is still taking her blood pressure medication. Recommend cut back on medication. Labs. No constipation. No new belly pain. Objective - Vital Signs Vital signs: Vital Signs Temp 98 F 03/25/21 13:46 Pulse 59 L 03/25/21 13:46 Resp 18 03/25/21 13:46 BP 107/56 03/25/21 13:46 Pulse Ox Intake & Output 03/24/21 03/25/21 03/25/21 18:59 06:59 18:59 Weight 112.037 kg
== END | disposition home or self-care (01) ==
LOC: BARWHC3 13:27
PROVIDERS: ATTEND Surgery Plastic and Reconstructive Surgery
DX: E66.01 Morbid (severe) obesity due to excess calories (principal); Z71.3 Dietary counseling and surveillance; Z68.42 Body mass index [BMI] 45.0-49.9, adult
CPT/HCPCS: 97803; 99211

== ENCOUNTER → 2021-04-08 | Outpatient (CLI) | payer BC ==
[2021-04-08 11:19] LABS: INR 0.9 (<1.2); Partial Thromboplastin Time 23.6 sec (22.0-30.0); Prothrombin Time 9.8 sec (9.0-12.0)
[2021-04-08 20:28] LABS: HCT 43.8 % (37.2-46.3); HGB 13.8 g/dL (12.0-15.0); MCH 28.5 pg (27.0-32.0); MCHC 31.5 g/dL (32.0-37.0); MCV 90.5 fL (80.0-97.0); Mean Platelet Volume 11.9 fL (9.5-12.2); Platelet Count 176 X 10*3/uL (140-440); RBC 4.84 X 10*6/uL (4.10-5.20); RDW 14.1 % (11.5-14.5); WBC 4.11 X 10*3/uL (4.50-10.00)
[2021-04-08 22:45] LABS: Hemoglobin A1C 4.5 % (4.0-6.0)
[2021-04-09 01:15] LABS: % Iron Saturation 22.45 (12.00-45.00); African American GFR (CKD) 113.8 (60.0-200.0); Albumin 4.3 g/dL (3.80-4.90); Albumin/Globulin Ratio 2.26 (1.60-3.17); Anion Gap 8.9 mmol/L (4.00-12.00); BUN/Creat Ratio 22.86 Ratio (12.00-20.00); Calcium 9.6 mg/dL (8.7-10.3); Carbon Dioxide 27.1 mmol/L (21.6-31.8); Chol/HDL Ratio 3.59; Globulin 1.9 g/dL (1.6-3.3); LDL Cholesterol,Calculated 99.2 mg/dL (0.0-131.0); Non-African American GFR(CKD) 98.2 (60.0-200.0); Phosphorus 2.9 mg/dL (2.4-5.1); Potassium 3.5 mmol/L (3.5-5.5); Total Bilirubin 0.4 mg/dL (0.3-1.2); Total Protein 6.2 g/dL (6.2-8.2); VLDL Calculation 14.8 mg/dL (5.00-40.00)
[2021-04-09 01:22] LABS: Ferritin 110.4 ng/mL (10.0-291.0)
[2021-04-09 01:25] LABS: Folate, Serum 8.4 ng/mL
[2021-04-09 13:29] LABS: Zinc, Serum 69 ug/dL (60-130)
[2021-04-10 07:16] LABS: Vitamin A 37 ug/dL (38-106)
== END | disposition home or self-care (01) ==
LOC: LABWHC1 10:22
PROVIDERS: ATTEND Surgery Plastic and Reconstructive Surgery
DX: E89.1 Postprocedural hypoinsulinemia (principal); D50.8 Other iron deficiency anemias; E44.0 Moderate protein-calorie malnutrition; E55.9 Vitamin D deficiency, unspecified; K74.1 Hepatic sclerosis; N19 Unspecified kidney failure; K50.90 Crohn's disease, unspecified, without complications
CPT/HCPCS: 36415; 80053; 80061; 82306; 82525; 82607; 82728; 82746; 83036; 83540; 83550; 83735; 83970; 84100; 84134; 84255; 84425; 84443; 84590; 84630; 85027; 85610; 85730

== ENCOUNTER → 2021-06-24 | Outpatient (CLI) | payer BC ==
[2021-06-24 15:26] VITALS: BP 110/72; PULSE 68; RESP 16; TEMP 98.1; BMI 38.5
--- NOTE | 2021-06-24 15:53 | P.BASOAP ---
Subjective Progress Note Date: 06/24/21 She reports more energy. She is dancing. Joints are feeling better. No GERD. No dysphagia. She has occassional stool softener. She is on 1/2 her blood pressure medications. Daily protein intake is 70 grams. Told about Fiber one cereal and probiotics. She is doing well. Objective - Vital Signs Vital signs: Vital Signs Temp 98.1 F 06/24/21 15:24 Pulse 68 06/24/21 15:24 Resp 16 06/24/21 15:24 BP 110/72 06/24/21 15:24 Pulse Ox Intake & Output 06/23/21 06/24/21 06/24/21 18:59 06:59 18:59 Weight 95.708 kg Assessment/Plan Plan: Date: 06/24/21 Initial Weight: 121.109 kg Initial BMI: 48.8 Current Weight: 95.708 kg Current BMI: 38.5 Type of Surgery: Total Volume in Band: Previous Volume: Volume Removed: Volume Added: Band Size:
[2021-06-24 17:19] LABS: HCT 48.8 % (34.0-46.0); HGB 16.6 gm/dL (11.4-16.0); MCH 30.6 pg (25.0-35.0); MCHC 33.9 g/dL (31.0-37.0); Mean Platelet Volume 7.5; Platelet Count 198 k/uL (150-450); RBC 5.42 m/uL (3.80-5.40); WBC 6.7 k/uL (3.8-10.6)
[2021-06-24 17:49] LABS: INR 0.9 (<1.2); Partial Thromboplastin Time 23.5 sec (22.0-30.0); Prothrombin Time 9.9 sec (9.0-12.0)
[2021-06-25 08:07] LABS: % Iron Saturation 14.64 (12.00-45.00); ALT 38 U/L (8-44); AST 29 U/L (13-35); African American GFR (CKD) 113.8 (60.0-200.0); Albumin 4.6 g/dL (3.8-4.9); Albumin/Globulin Ratio 1.92 (1.60-3.17); Alkaline Phosphatase 81 U/L (41-126); BUN/Creat Ratio 18.43 Ratio (12.00-20.00); Blood Urea Nitrogen 12.9 mg/dL (9.0-27.0); Calcium 9.7 mg/dL (8.7-10.3); Carbon Dioxide 26.1 mmol/L (21.6-31.8); Chloride 98 mmol/L (96-109); Chol/HDL Ratio 3.73 Ratio; Globulin 2.4 g/dL (1.6-3.3); Glucose 89 mg/dL (70-110); Iron 50 ug/dL (50-170); LDL Cholesterol,Calculated 123.2 mg/dL (0.0-131.0); Magnesium 2.2 mg/dL (1.5-2.4); Non-African American GFR(CKD) 98.2 (60.0-200.0); Phosphorus 3.3 mg/dL (2.4-5.1); Potassium 3.2 mmol/L (3.5-5.5); Prealbumin 21.8 mg/dL (18.0-42.0); Sodium 141 mmol/L (135-145); Total Iron Binding Capacity 342 ug/dL (228-460); VLDL Calculation 15.86 mg/dL (5.00-40.00)
[2021-06-25 14:10] LABS: Zinc, Serum 69 ug/dL (60-130)
[2021-06-26 06:22] LABS: Vitamin A 48 ug/dL (38-106)
[2021-06-26 06:28] LABS: Vit B1(Thiamine) 64 ug/L (38-122)
[2021-06-29 09:19] LABS: Selenium 152 mcg/L (63-160)
== END | disposition home or self-care (01) ==
LOC: BARWHC3 14:46
PROVIDERS: ATTEND Surgery Plastic and Reconstructive Surgery
DX: E66.01 Morbid (severe) obesity due to excess calories (principal); E89.1 Postprocedural hypoinsulinemia; D50.8 Other iron deficiency anemias; E44.0 Moderate protein-calorie malnutrition; E55.9 Vitamin D deficiency, unspecified; K74.1 Hepatic sclerosis; N19 Unspecified kidney failure; K50.90 Crohn's disease, unspecified, without complications; Z68.38 Body mass index [BMI] 38.0-38.9, adult
CPT/HCPCS: 80053; 80061; 82306; 82525; 82607; 82728; 82746; 83036; 83540; 83550; 83735; 83970; 84100; 84134; 84255; 84425; 84443; 84590; 84630; 85027; 85610; 85730; 99211

== ENCOUNTER → 2021-09-30 | Outpatient (CLI) | payer BC ==
--- NOTE | 2021-09-30 16:29 | P.BASOAP ---
Subjective Progress Note Date: 09/30/21 Patient clinically doing well. She is lost weight. Loss of 80 pounds. No abdominal pain. No reflux. Blood pressure excellent control. She reports occasional dizziness with her blood pressure medications. Recommend curtailing her dose. Follow-up at her three-month cycle him. Blood work today advised.0 Assessment/Plan Plan: Date: Initial Weight: 121.109 kg Initial BMI: Current Weight: Current BMI: Type of Surgery: Total Volume in Band: Previous Volume: Volume Removed: Volume Added: Band Size:
[2021-09-30 16:46] VITALS: BP 109/67; PULSE 67; TEMP 97.9; BMI 34.5
== END | disposition home or self-care (01) ==
LOC: BARWHC3 16:06
PROVIDERS: ATTEND Surgery Plastic and Reconstructive Surgery
DX: E66.01 Morbid (severe) obesity due to excess calories (principal); Z68.34 Body mass index [BMI] 34.0-34.9, adult
CPT/HCPCS: 99211

== ENCOUNTER → 2022-03-03 | Outpatient (CLI) | payer BC ==
[2022-03-03 16:10] VITALS: BP 122/76; PULSE 59; RESP 16; TEMP 98; BMI 30.5
--- NOTE | 2022-03-03 16:50 | P.BASOAP ---
Subjective Progress Note Date: 03/03/22 NO moderate hair loss. She lost 100 pounds! She gets at least 60 grams. Her BM daily. No food getting stuck. She is off medications. Wean off. Objective - Vital Signs Vital signs: Vital Signs Temp 98 F 03/03/22 16:07 Pulse 59 L 03/03/22 16:07 Resp 16 03/03/22 16:07 BP 122/76 03/03/22 16:07 Pulse Ox FiO2 Intake & Output 03/02/22 03/03/22 03/03/22 18:59 06:59 18:59 Weight 75.75 kg Assessment/Plan Plan: Date: 03/03/22 Initial Weight: 121.109 kg Initial BMI: 48.8 Current Weight: 75.75 kg Current BMI: 30.5 Type of Surgery: Vertical Sleeve Gastrectomy Total Volume in Band: Previous Volume: Volume Removed: Volume Added: Band Size:
== END | disposition home or self-care (01) ==
LOC: BARWHC3 15:59
PROVIDERS: ATTEND Surgery Plastic and Reconstructive Surgery
DX: Z48.815 Encounter for surgical aftercare following surgery on the digestive system (principal)
CPT/HCPCS: 99211

== ENCOUNTER → 2022-04-22 | Outpatient (CLI) | payer BC ==
[2022-04-22 14:53] LABS: INR 0.9 (<1.2); Partial Thromboplastin Time 24.1 sec (22.0-30.0); Prothrombin Time 10.1 sec (9.0-12.0)
[2022-04-22 18:09] LABS: HCT 46.3 % (37.2-46.3); HGB 15.1 g/dL (12.0-15.0); MCH 29.6 pg (27.0-32.0); MCHC 32.6 g/dL (32.0-37.0); MCV 90.8 fL (80.0-97.0); Mean Platelet Volume 9.7 fL (9.5-12.2); NRBC Per 100 WBC 0 /100 WBCS (0.0-0.0); Platelet Count 221 X 10*3/uL (140-440); RDW 13.6 % (11.5-14.5); WBC 7.04 X 10*3/uL (4.50-10.00)
[2022-04-22 19:27] LABS: % Iron Saturation 24.72 (12.00-45.00); ALT 16 U/L (8-44); AST 24 U/L (13-35); Albumin 4.4 g/dL (3.8-4.9); Alkaline Phosphatase 75 U/L (41-126); BUN/Creat Ratio 27.57 Ratio (12.00-20.00); Blood Urea Nitrogen 19.3 mg/dL (9.0-27.0); Calcium 9.3 mg/dL (8.7-10.3); Carbon Dioxide 26.6 mmol/L (20.0-27.5); Chloride 103 mmol/L (96-109); Chol/HDL Ratio 4.07 Ratio; Globulin 2.2 g/dL (1.6-3.3); Glucose 86 mg/dL (70-110); Iron 80 ug/dL (50-170); LDL Cholesterol,Calculated 156.3 mg/dL (0.0-131.0); Magnesium 1.9 mg/dL (1.5-2.4); Non-African American GFR(CKD) 97.5 (60.0-200.0); Potassium 4.4 mmol/L (3.5-5.5); Sodium 141 mmol/L (135-145); Total Iron Binding Capacity 322 ug/dL (228-460); Total Protein 6.6 g/dL (6.2-8.2); VLDL Calculation 19.48 mg/dL (5.00-40.00)
[2022-04-23 12:22] LABS: Zinc, Serum 56 ug/dL (60-130)
== END | disposition home or self-care (01) ==
LOC: LABPAT 14:11
PROVIDERS: ATTEND Surgery Plastic and Reconstructive Surgery
DX: E66.01 Morbid (severe) obesity due to excess calories (principal); E89.1 Postprocedural hypoinsulinemia; D50.8 Other iron deficiency anemias; D50.9 Iron deficiency anemia, unspecified; K91.2 Postsurgical malabsorption, not elsewhere classified; E44.0 Moderate protein-calorie malnutrition; E44.1 Mild protein-calorie malnutrition; E45 Retarded development following protein-calorie malnutrition; E46 Unspecified protein-calorie malnutrition; E55.9 Vitamin D deficiency, unspecified; K74.1 Hepatic sclerosis; N19 Unspecified kidney failure; T56.894A Toxic effect of other metals, undetermined, initial encounter; K50.90 Crohn's disease, unspecified, without complications
CPT/HCPCS: 80053; 80061; 82306; 82525; 82607; 82728; 82746; 83540; 83550; 83735; 83970; 84100; 84134; 84255; 84425; 84443; 84590; 84630; 85027; 85610; 85730

== ENCOUNTER → 2022-07-07 | Outpatient (CLI) | payer BC ==
[2022-07-07 13:42] VITALS: BP 164/89; PULSE 72; TEMP 98; BMI 27.8
--- NOTE | 2022-07-07 13:54 | P.BASOAP ---
Subjective Progress Note Date: 07/07/22 She comes in with skin problems with panniculitis. Recommend Nystatin powder. Personal Trainer appointment. Has grade 3 panniculitis with active redness. DATE OF SERVICE: 03/03/2022 CHIEF COMPLAINT: Status sleeve gastrectomy HISTORY OF PRESENT ILLNESS: Tim Dodson is a 56-year-old female who is st atus post sleeve gastrectomy, 03/02/2021. She is 1 year months out. She denies moderate hair loss. She lost close to 100 pounds! She eats at least 60 grams protein daily. Her bowel movement is daily. She denies food getting stuck. She is off her blood pressure medications. At height of 5 feet 2 inches, her ideal body weight is 135 pounds. Her highest weight is 266 pounds, body mass index 48.8 She comes in 167 pounds from 176 pounds, 2 months ago. She has lost 9 pounds in 2 months. Lifetime weight loss of 99 pounds. Percent excess weight loss of 76 %. Her body mass index is 30.5. She is 32 pounds overweight. PHYSICAL EXAM: VITAL SIGNS: Height 5 foot 2 inches, weight 167 pounds. BMI 30.5 GENERAL: Well-developed in no acute distress. HEENT: No scleral icterus. Extraocular movements grossly intact. Hears conversational speech. No nasal drainage. NECK: Supple without lymphadenopathy. CHEST: Nonlabored respirations with equal bilateral excursions. CARDIOVASCULAR: Regular rate and regular rhythm. Distal 2+ pulses. ABDOMEN: Nontender. Nondistended. MUSCULOSKELETAL: No clubbing, cyanosis. NEURO: No focal or lateralizing signs. Cranial nerves 2 through 12 grossly within normal limits. PSYCH: Appropriate affect. Alert and oriented to person, place and time. SKIN: Good skin turgor. Well perfused. ASSESSMENT: 1. Morbid obesity due to excess calories 2. Body mass index of 48.8 to 30.5 3. Gastroesophageal reflux disease. 4. Colitis 5. Hyperlipidemia 6. Osteoarthritis of the back 7. Osteoarthritis of the hips 8. Osteoarthritis of the knees 9. Hypertensive heart disease. 10. Vitamin A deficiency 11. Anemia 12. Secondary hyperparathyroidism 13. Hiatal hernia 14. Status post sleeve gastrectomy 15. Constipation 16. Hypokalemia 17. Zinc deficiency PLAN: 1. Recommend bariatric labs as she is at her 1 year anniversary. 2. Follow up in 1 year or sooner for any issues. Objective - Vital Signs Vital signs: Vital Signs Temp 98 F 07/07/22 13:38 Pulse 72 07/07/22 13:38 Resp BP 164/89 07/07/22 13:38 Pulse Ox FiO2 Intake & Output 07/06/22 07/07/22 07/07/22 18:59 06:59 18:59 Weight 68.946 kg Assessment/Plan Plan: Date: 07/07/22 Initial Weight: 121.109 kg Initial BMI: 48.8 Current Weight: 68.946 kg Current BMI: 27.8 Type of Surgery: Total Volume in Band: Previous Volume: Volume Removed: Volume Added: Band Size:
== END ==
LOC: BARWHC3 13:02
PROVIDERS: ATTEND Surgery Plastic and Reconstructive Surgery
DX: E66.01 Morbid (severe) obesity due to excess calories (principal); Z68.42 Body mass index [BMI] 45.0-49.9, adult; K21.9 Gastro-esophageal reflux disease without esophagitis; E78.5 Hyperlipidemia, unspecified; K52.9 Noninfective gastroenteritis and colitis, unspecified; D64.9 Anemia, unspecified; I11.9 Hypertensive heart disease without heart failure; Z98.84 Bariatric surgery status; K59.00 Constipation, unspecified; E87.6 Hypokalemia; E60 Dietary zinc deficiency; K44.9 Diaphragmatic hernia without obstruction or gangrene; N25.81 Secondary hyperparathyroidism of renal origin; E50.9 Vitamin A deficiency, unspecified; M17.0 Bilateral primary osteoarthritis of knee; M16.0 Bilateral primary osteoarthritis of hip; M47.816 Spondylosis without myelopathy or radiculopathy, lumbar region
CPT/HCPCS: 99211

== ENCOUNTER → 2022-11-22 | Outpatient (CLI) | payer BC ==
[2022-11-22 16:18] LABS: African American GFR (CKD) 110.2 (60.0-200.0); Albumin 4.2 g/dL (3.8-4.9); Albumin/Globulin Ratio 2.14 (1.60-3.17); Anion Gap 9.9 mmol/L (10.00-18.00); BUN/Creat Ratio 28.69 Ratio (12.00-20.00); Blood Urea Nitrogen 20.4 mg/dL (9.0-27.0); Calcium 9.3 mg/dL (8.7-10.3); Carbon Dioxide 27.6 mmol/L (20.0-27.5); Non-African American GFR(CKD) 95.1 (60.0-200.0); Potassium 3.8 mmol/L (3.5-5.5); Total Bilirubin 0.5 mg/dL (0.30-1.20); Total Protein 6.2 g/dL (6.2-8.2)
[2022-11-22 16:22] LABS: Basophils # (A) 0.05 X 10*3/uL (0.00-0.10); Basophils % (A) 0.9 %; Eosinophils # (A) 0.13 X 10*3/uL (0.04-0.35); Eosinophils % (A) 2.2 %; HCT 43.7 % (37.2-46.3); HGB 14.6 g/dL (12.0-15.0); Immature Grans, Automated 0.2 %; Lymphocytes # (A) 1.68 X 10*3/uL (0.90-5.00); Lymphocytes % (A) 28.9 %; MCH 30.2 pg (27.0-32.0); MCHC 33.4 g/dL (32.0-37.0); MCV 90.5 fL (80.0-97.0); Mean Platelet Volume 9.6 fL (9.5-12.2); Monocytes # (A) 0.41 X 10*3/uL (0.20-1.00); NRBC Per 100 WBC 0 /100 WBCS (0.0-0.0); Neutrophils # (A) 3.54 X 10*3/uL (1.80-7.70); Neutrophils % (A) 60.8 %; Platelet Count 182 X 10*3/uL (140-440); RBC 4.83 X 10*6/uL (4.10-5.20); RDW 13.5 % (11.5-14.5); WBC 5.82 X 10*3/uL (4.50-10.00)
== END | disposition home or self-care (01) ==
LOC: LABPAT 08:29
PROVIDERS: ATTEND Surgery Plastic and Reconstructive Surgery
DX: Z01.812 Encounter for preprocedural laboratory examination (principal)
CPT/HCPCS: 80053; 85025

== ENCOUNTER 2022-12-06 12:30 | Inpatient (IN) | payer BC ==
[2022-11-30 14:08] VITALS: BMI 26.5
[~2022-12-06 12:30] MED LIST changes: +DEXAMETHASONE SOD PHOSPHATE 4 MG/ML 1 ML VIAL IV ONE; -LACTATED RINGERS 1,000 ML IV SCH; -LIDOCAINE 1% (10MG/ML) FOR IV START INTRADERMA PRN; +ONDANSETRON 4 MG/2 ML VIAL IVP ONE
[2022-12-06] MEDS: LACTATED RINGERS 1,000 ML IV SCH (13:55)
[2022-12-06] MEDS ORDERED: MIDAZOLAM 2 MG/2 ML VIAL IVP ONE (14:31)
[2022-12-06] MEDS ORDERED: HEPARIN SODIUM,PORCINE/PF 5,000 UNIT/0.5 ML SYRINGE SQ STA (15:07)
--- NOTE | 2022-12-06 15:07 | P.GSHP ---
History of Present Illness H&P Date: 12/06/22 CHIEF COMPLAINT: Panniculitis HISTORY OF PRESENT ILLNESS: Tim Dodson is a 57-year-old female status post sleeve gastrectomy, 2020, 2 years ago. She has recurrent panniculitis including chronic back pain and troubles with activities of daily living due to her pannus. She has had treatment for over 6 months to 1 year prescription creams with recurrent symptoms. She presents for panniculectomy. At height of 5 feet 2 inches, her ideal body weight is 135 pounds. She was 266 pounds. She comes in now 159 pounds, over 100+ pound weight loss from her sleeve gastrectomy. PAST MEDICAL HISTORY: 1. Morbid obesity due to excess calories 2. Body mass index of 48.8 3. Gastroesophageal reflux disease. 4. Colitis 5. Hyperlipidemia 6. Osteoarthritis of the back 7. Osteoarthritis of the hips 8. Osteoarthritis of the knees 9. Hypertensive heart disease. 10. Chronic panniculitis PAST SURGICAL HISTORY: 1. Left breast biopsy 2. Hysterectomy 3. Tonsillectomy 4. Thyroid surgery 5. Status post gastric bypass HOME MEDICATIONS: Reviewed ALLERGIES: Reviewed SOCIAL HISTORY: Past tobacco use. FAMILY HISTORY: No family history of ulcerative colitis disease or Crohn's disease. Family history of morbid obesity. No lupus in the family. No reports of stomach or esophageal cancer. REVIEW OF ORGAN SYSTEMS: CONSTITUTIONAL: At height of 5 feet 2 inches, her ideal body weight is 135 pounds. She comes in 260 pounds. Her body mass index is 47.7. She is 125 pounds overweight. HEENT: Denies any active troubles with vision or hearing. ENDOCRINE: No diabetes. Has thyroid disorder. CARDIOVASCULAR: No past reports of palpitations or heart attacks or chest pain. Has hypertensive heart disease. Has hyperlipidemia. RESPIRATORY: Has daytime somnolence. Denies asthma GASTROINTESTINAL: Denies any bright red blood per rectum. No diarrhea. No constipation. Has gastroesophageal reflux disease. GENITOURINARY: Denies bladder urgency. No recent blood in urine. Past cervical cancer. MUSCULOSKELETAL: Has lower back pain and joint pain. Has osteoarthritis of the knees. NEURO: No headaches. No seizure disorders. PSYCH: Has depression. No suicidal ideation. RHEUMATOLOGIC: No lupus. No rheumatoid arthritis. HEMATOLOGIC: Denies any abnormal bleeding. Has bruising. SKIN: Has chronic panniculitis. PHYSICAL EXAM: VITAL SIGNS: Height 5 foot 2 inches, weight 266 pounds. BMI 48.8 GENERAL: Well-developed in no acute distress. HEENT: No scleral icterus. Extraocular movements grossly intact. Hears conversational speech. No nasal drainage. NECK: Supple without lymphadenopathy. CHEST: Nonlabored respirations with equal bilateral excursions. CARDIOVASCULAR: Regular rate and regular rhythm. Distal 2+ pulses. ABDOMEN: Obese, soft, nontender, nondistended. MUSCULOSKELETAL: No clubbing, cyanosis. NEURO: No focal or lateralizing signs. Cranial nerves 2 through 12 grossly within normal limits. PSYCH: Appropriate affect. Alert and oriented to person, place and time. SKIN: Good skin turgor. Well perfused. ASSESSMENT: 1. Panniculitis with central adiposity 2. Body mass index of 48.8 now 28.2 3. Gastroesophageal reflux disease. 4. Colitis 5. Hyperlipidemia 6. Osteoarthritis of the back 7. Osteoarthritis of the hips 8. Osteoarthritis of the knees 9. Hypertensive heart disease. 10. Vitamin A deficiency 11. Anemia 12. Secondary hyperparathyroidism 13. Morbid obesity due to excess calories 14. Status post sleeve gastrectomy PLAN: 1. Recommend panniculectomy for chronic panniculitis with concomittant severe lower back pain and uncontrolled symptoms despite systemic and local treatment including limitation of activities of daily living. Anticipated resection over 10+ pounds described. Panniculectomy should correct her functional deficits. 2. Recommend 2 week protein diet for optimal recovery 3. Risks of bleeding, needs for drains, flap failure, infection, need for further surgery were described. She is high risk for [place]-operative complications with anticipated 10+ skin resection. 4. Inpatient hospitalization also described 5. DVT prophylaxis. 6. Antibiotic prophylaxis 7. Extended recovery more than 6-8 weeks described including placement of drains more than 2 weeks reviewed. 8. Strict nicotine avoidance including secondhand exposure perioperative including postoperative described to decrease risk of wound infection and complications. Past Medical History Past Medical History: Cancer, Thyroid Disorder Additional Past Medical History / Comment(s): cervical cancer 2003 History of Any Multi-Drug Resistant Organisms: None Reported Past Surgical History: Bariatric Surgery, Breast Surgery, Hysterectomy, Orthopedic Surgery, Tonsillectomy Additional Past Surgical History / Comment(s): thyroid surgery; bone removed left pinky toe; left breast biopsy sleeve gastrectomy 03-02-21 Past Anesthesia/Blood Transfusion Reactions: No Reported Reaction Past Psychological History: No Psychological Hx Reported Smoking Status: Former smoker Past Alcohol Use History: Rare Additional Past Alcohol Use History / Comment(s): quit smoking 04-28,smoked approx 40 yrs Past Drug Use History: Marijuana Additional Drug Use History / Comment(s): daily marijuana user - Past Family History Mother Family Medical History: No Reported History Father History Unknown: Yes Family Medical History: Unable to Obtain Medications and Allergies Home Medications Medication Instructions Recorded Confirmed Type Pantoprazole [Protonix] 40 mg PO DAILY 02/04/21 11/30/22 History Cholecalciferol [Vitamin D3 (10 1 tab PO DAILY 12/16/21 11/30/22 History Mcg = 400 Iu)] L.acidoph,Paracasei, B.lactis 1 each PO DAILY 12/16/21 11/30/22 History [Probiotic] Vitamin A [Vitamin A (8,000 Units 1 tab PO DAILY 12/16/21 11/30/22 History = 2,400 MCG)] Vitamin B Complex 1 each PO DAILY 07/07/22 11/30/22 History Vitamin E Acetate [Vitamin E] 134 mg PO DAILY 07/07/22 11/30/22 History Zinc Gluconate [Zinc] 50 mg PO DAILY 07/07/22 11/30/22 History 5-Hydroxytryptophan (5-Htp) [5-Htp] 100 mg PO 11/30/22 History Docusate [Colace] 200 mg PO HS 11/30/22 11/30/22 History Magnesium Oxide [Magnesium] 500 mg PO DAILY 11/30/22 11/30/22 History Nf-Collagen 1,650 mg PO DAILY 11/30/22 11/30/22 History Allergies Allergy/AdvReac Type Severity Reaction Status Date / Time No Known Allergies Allergy Verified 12/06/22 13:50 Surgical - Exam Vital Signs Temp Pulse Resp BP Pulse Ox 98.3 F 58 L 16 137/61 99 12/06/22 13:59 12/06/22 13:59 12/06/22 13:59 12/06/22 13:59 12/06/22 13:59
[2022-12-06] MEDS ORDERED: LIDOCAINE 2% INJ 20 MG/ML (2 ML VIAL) ONE (15:28)
[2022-12-06] MEDS ORDERED: KETAMINE 10 MG/ML 20 ML VIAL ONE (15:28)
[2022-12-06] MEDS ORDERED: PROPOFOL 10 MG/ML 20 ML VIAL IV ONE (15:28)
[2022-12-06] MEDS ORDERED: NEOSTIGMINE 1 MG/ML 10 ML VIAL ONE (15:28)
[2022-12-06] MEDS ORDERED: SUCCINYLCHOLINE CHLORIDE 200 MG/10 ML VIAL IV ONE (15:28)
[2022-12-06] MEDS ORDERED: HYDROmorphone (PF) 1 MG/ML ONE (15:28)
[2022-12-06] MEDS ORDERED: GLYCOPYRROLATE 0.2 MG/ML 2 ML VIAL ONE (15:28)
[2022-12-06] MEDS ORDERED: fentaNYL (PF) 50 MCG/ML 2 ML AMP ONE (15:28)
[2022-12-06] MEDS ORDERED: ROCURONIUM 10 MG/ML (5 ML VIAL) IV ONE (15:28)
[2022-12-06] MEDS ORDERED: MIDAZOLAM 2 MG/2 ML VIAL ONE (15:28)
[2022-12-06] MEDS ORDERED: PHENYLEPHRINE-0.9% NACL SYG 1,000 MCG/10 ML SYRINGE ONE (15:28)
[2022-12-06] MEDS ORDERED: ONDANSETRON 4 MG/2 ML VIAL ONE (15:28)
[2022-12-06] MEDS ORDERED: LACTATED RINGERS 1,000 ML IV ONE ×2 (16:40→20:08)
[2022-12-06] MEDS ORDERED: TRIMETHOBENZAMIDE 100 MG/ML 2 ML VIAL IM PRN (19:20)
[2022-12-06] MEDS ORDERED: NALOXONE 0.4 MG/ML 1 ML VIAL IV PRN ×2 (19:20→19:24)
[2022-12-06] MEDS ORDERED: HYDROmorphone 1 MG/ML 1 ML SYRINGE IVP PRN (19:20)
[2022-12-06] MEDS: HYDROmorphone 0.5 MG/0.5 ML SYRINGE IVP PRN ×2 (19:31→19:37)
--- NOTE | 2022-12-06 19:33 | P.OP ---
Date of Procedure: 12/06/22 Description of Procedure: SURGEON: PARIS BOWLES MD PREOPERATIVE DIAGNOSES: 1. Panniculitis with central adiposity 2. Body mass index of 48.8 now 28.2 3. Gastroesophageal reflux disease. 4. Colitis 5. Hyperlipidemia 6. Osteoarthritis of the back 7. Osteoarthritis of the hips 8. Osteoarthritis of the knees 9. Hypertensive heart disease. 10. Vitamin A deficiency 11. Anemia 12. Secondary hyperparathyroidism 13. Morbid obesity due to excess calories 14. Status post sleeve gastrectomy 15. Status post massive weight loss, 111 pounds. POSTOPERATIVE DIAGNOSES: 1. Chronic panniculitis recalcitrant to medical therapy 2. Adiposis panniculus with initial reducible ventral hernia 18 cm x 9 cm 3. Morbid obesity due to excess calories, Body mass index of 48.8 now 28.2 4. Gastroesophageal reflux disease. 5. Hyperlipidemia 6. Osteoarthritis of the back 7. Osteoarthritis of the hips 8. Osteoarthritis of the knees 9. Hypertensive heart disease. 10. Vitamin A deficiency 11. Anemia 12. Secondary hyperparathyroidism 13. Morbid obesity due to excess calories 14. Status post sleeve gastrectomy 15. Status post massive weight loss, 111 pounds. OPERATION: 1. Panniculectomy, 4 pounds. 2. Primary repair of ventral hernia 18 x 9 cm without mesh. 3. Abdominal wall reconstruction with myocutaneous bilateral flap advancement. ANESTHESIA: General ESTIMATED BLOOD LOSS: 350 mL SPECIMENS REMOVED: Pannus 4 pounds. COMPLICATIONS: None. CONDITION: Stable. DRAINS: Two #19 round Hadley-Sherwood drains below abdominal flap extending through the pubis. OPERATIVE FINDINGS: 1. Pannus weighing 4 pounds, excised. 2. Abdominal ventral hernia of 18 x 9 cm along the midline repaired primarily using fascial imbrication. INDICATIONS: Tim Dodson is a 57-year-old female status post sleeve gastrectomy, 2020, 2 years ago. She has recurrent panniculitis including chronic back pain and troubles with activities of daily living due to her pannus. She has had treatment for over 6 months to 1 year prescription creams with recurrent symptoms. She presents for panniculectomy. At height of 5 feet 2 inches, her ideal body weight is 135 pounds. She was 266 pounds. She comes in now 159 pounds, over 100+ pound weight loss from her sleeve gastrectomy. Benefits and risks of the procedure including bleeding, infection, cosmetic deformity, abdominal seromas, placement of drains, risk of flap failure were described at length. Informed consent was obtained. DESCRIPTION: In the preanesthesia care unit the patient was marked with an indelible marker and was given lovenox subcutaneously. The patient was brought into the operating room and laid in supine position. Af ter general induction, a Knight catheter was placed. The abdomen was then prepped and draped in standard sterile fashion using ChloraPrep. The skin was prepped as far laterally to the back, inferiorly to the upper thighs and superiorly to above the chest. A timeout protocol was confirmed with the surgical team regarding patient's name, procedure to be performed, including preoperative medications. He had received Ancef IV antibiotics. Once the time-out protocol was confirmed with the surgical team, the patient was re-marked with indelible marker whereby the midline of the xiphoid to the mons pubis was marked. The anterior/superior iliac spine along the bilateral hips was also marked. At 8 cm above the pubis commissure a transverse incision was made for the inferior portion of the flap. Using a #10 blade, the incision was taken from the midline laterally to above the anterior/superior iliac spine, initially on the left side of the patient and then on the right side of the patient. Electro-Bovie cautery was used to control for hemostasis. The dissection was taken down to the level of the fascia. Landmarks used were the xiphoid process as well as the bilateral costal margins for the superior margin. Care was taken to avoid any creation of dog ears during the dissection. Once hemostasis was checked, a ventral hernia fascial weakness of 9 x 18 cm was identified unrelated to previous bariatric procedure. During this dissection, the umbilicus was truncated at its fascial insertion. Bilateral myocutaneous flap advancement was performed to close the defect of 18 x 9 cm using the rectus muscle. After the muscular flaps were exposed, the midline was re-marked again from the xiphoid to the pubis commissure. Fascial imbrications x 2 were completed with primary repair reinforcement of the bilateral myocutaneous flap advancement. Hemostasis was once again checked with electro-Bovie cautery and all defects were addressed. Attention was now brought to closure of the flap. Using stainless steel skin lacie, the midline was once again marked of the upper flap as well as the pubic commissure. The patient was placed in a flexed position of approximately 20 degrees at the hips. The pannus was extended inferiorly to the feet. The upper flap was created once the excess skin was excised. Again care was taken to avoid any dog ears along the lateral aspect of the incisions. Once excised, the pannus was weighed at 4 pounds. The upper and lower flaps were reapproximated at the midline and then laterally to the skin with skin lacie. Once reapproximated, the skin was closed in layers using 0 Vicryl for the superficial fascial system followed by running 3-0 Monocryl for the deep dermis in a running subcuticular fashion. Prior to skin closure, two round #19 Hadley-Sherwood drains were placed underneath the flap and brought out just inferior to the incision along the pubis. Drain stitch using 2-0 nylon was placed. Once the incision was closed, bulb suction was attached. Hemostasis was checked. At the end of the procedure, the needle, sponge and instrument count was verified correct. The skin was cleansed with hydrogen peroxide. Exofin tape including adhesive was placed along the length of the incision. Optifoam dressing was also placed over the incision and over the MARIYA sites. The patient was then transferred to a hospital bed in a beach chair position. An abdominal binder was placed and marked. The patient was taken to the postanesthesia care unit in stable condition, awake and extubated.
[2022-12-06] MEDS: fentaNYL PCA 500 MCG/50 ML BAG IV SCH (21:06)
[2022-12-06] MEDS: LORazepam 2 MG/ML INJ IV PRN (23:14)
[2022-12-06] MEDS: ONDANSETRON 4 MG/2 ML VIAL IVP SCH (23:15)
[2022-12-06] MEDS: GABAPENTIN 300 MG CAP PO SCH (23:15)
[2022-12-06] MEDS: CYCLOBENZAPRINE 10 MG TAB PO SCH (23:15)
[2022-12-06] MEDS: DOCUSATE 100 MG CAP PO SCH (23:15)
[2022-12-06] MEDS: HEPARIN SODIUM,PORCINE/PF 5,000 UNIT/0.5 ML SYRINGE SQ SCH (23:16)
[2022-12-07] MEDS: fentaNYL PCA 500 MCG/50 ML BAG IV SCH ×2 (05:32→12:59)
[2022-12-07] MEDS: ONDANSETRON 4 MG/2 ML VIAL IVP SCH ×2 (06:21→13:24)
[2022-12-07 07:22] VITALS: RESP 18
[2022-12-07] MEDS: ACETAMINOPHEN TAB 500 MG TAB PO SCH ×4 (08:07→13:24)
[2022-12-07] MEDS: CYCLOBENZAPRINE 10 MG TAB PO SCH ×2 (08:19→17:08)
[2022-12-07] MEDS: GABAPENTIN 300 MG CAP PO SCH ×2 (08:19→17:08)
[2022-12-07] MEDS: DOCUSATE 100 MG CAP PO SCH (08:19)
[2022-12-07] MEDS: HEPARIN SODIUM,PORCINE/PF 5,000 UNIT/0.5 ML SYRINGE SQ SCH (08:19)
[2022-12-07] MEDS ORDERED: MAGNESIUM OXIDE 400 MG TAB PO SCH (09:00)
[2022-12-07] MEDS ORDERED: PANTOPRAZOLE 40 MG/10 ML VIAL IV SCH (09:00)
[2022-12-07] MEDS: LORazepam 2 MG/ML INJ IV PRN (09:55)
[2022-12-07] MEDS: LACTATED RINGERS 1,000 ML IV SCH (09:57)
[2022-12-07 10:47] LABS: Basophils # (A) 0 X 10*3/uL (0.00-0.10); Basophils % (A) 0 %; Eosinophils # (A) 0.09 X 10*3/uL (0.04-0.35); Eosinophils % (A) 1.2 %; HCT 38.6 % (37.2-46.3); HGB 12.5 g/dL (12.0-15.0); Immature Grans, Automated 0.3 %; Lymphocytes # (A) 0.45 X 10*3/uL (0.90-5.00); Lymphocytes % (A) 5.8 %; MCH 29.9 pg (27.0-32.0); MCHC 32.4 g/dL (32.0-37.0); MCV 92.3 fL (80.0-97.0); Mean Platelet Volume 9.8 fL (9.5-12.2); Monocytes # (A) 0.19 X 10*3/uL (0.20-1.00); Monocytes % (A) 2.5 %; NRBC Per 100 WBC 0 /100 WBCS (0.0-0.0); Neutrophils # (A) 6.99 X 10*3/uL (1.80-7.70); Neutrophils % (A) 90.2 %; Platelet Count 165 X 10*3/uL (140-440); RBC 4.18 X 10*6/uL (4.10-5.20); RDW 13.7 % (11.5-14.5); WBC 7.74 X 10*3/uL (4.50-10.00)
[2022-12-07 15:04] VITALS: BP 94/56; PULSE 67; TEMP 97.9
--- NOTE | 2022-12-07 15:36 | P.DS ---
Providers Date of admission: 12/06/22 13:30 Expected date of discharge: 12/07/22 Attending physician: Radha Leon Consults: 12/06/22 15:07 Consult Physician Routine Consulting Provider: [facility] Consult Reason/Comments: Regional block Do you want consulting provider notified?: Yes Primary care physician: Chip Whitman Hospital Course: Discharge diagnosis 1. Chronic panniculitis recalcitrant to medical therapy 2. Adiposis panniculus with initial reducible ventral hernia 18 cm x 9 cm 3. Morbid obesity due to excess calories, Body mass index of 48.8 now 28.2 4. Gastroesophageal reflux disease. 5. Hyperlipidemia 6. Osteoarthritis of the back 7. Osteoarthritis of the hips 8. Osteoarthritis of the knees 9. Hypertensive heart disease. 10. Vitamin A deficiency 11. Anemia 12. Secondary hyperparathyroidism 13. Morbid obesity due to excess calories 14. Status post sleeve gastrectomy 15. Status post massive weight loss, 111 pounds. Hospital course Tim Dodson is a 57-year-old female status post sleeve gastrectomy, 2020, 2 years ago. She has recurrent panniculitis including chronic back pain and troubles with activities of daily living due to her pannus. She is status post panniculectomy, primary repair of ventral hernia without mesh and abdominal wall reconstruction with myocutaneous bilateral flap advancement. Patient reports her pain is controlled. She is tolerating diet. She is afebrile. She is having flatus. She denies any difficulty urinating. She has been up and ambulating. She is stable for discharge. Physician Wildlife Officer note has been reviewed by physician. Signing provider agrees with the documented findings, assessment, and plan of care. Patient Condition at Discharge: Stable Plan - Discharge Summary Discharge Rx Participant: No New Discharge Prescriptions: New Cyclobenzaprine [Flexeril] 10 mg PO TID PRN #9 tab PRN Reason: Pain Acetaminophen Tab [Tylenol] 1,000 mg PO Q6HR PRN #30 tablet PRN Reason: Pain Gabapentin [Neurontin] 300 mg PO TID #9 cap Continue Pantoprazole [Protonix] 40 mg PO DAILY Magnesium Oxide [Magnesium] 500 mg PO DAILY L.acidoph,Paracasei, B.lactis [Probiotic] 1 each PO DAILY Docusate [Colace] 200 mg PO HS Discontinued Cholecalciferol [Vitamin D3 (10 Mcg = 400 Iu)] 1 tab PO DAILY Vitamin A [Vitamin A (8,000 Units = 2,400 MCG)] 1 tab PO DAILY Vitamin E Acetate [Vitamin E] 134 mg PO DAILY Nf-Collagen 1,650 mg PO DAILY 5-Hydroxytryptophan (5-Htp) [5-Htp] 100 mg PO Zinc Gluconate [Zinc] 50 mg PO DAILY Vitamin B Complex 1 each PO DAILY Discharge Medication List Pantoprazole [Protonix] 40 mg PO DAILY 02/04/21 [History] L.acidoph,Paracasei, B.lactis [Probiotic] 1 each PO DAILY 12/16/21 [History] Docusate [Colace] 200 mg PO HS 11/30/22 [History] Magnesium Oxide [Magnesium] 500 mg PO DAILY 11/30/22 [History] Acetaminophen Tab [Tylenol] 1,000 mg PO Q6HR PRN #30 tablet 12/07/22 [Rx] Cyclobenzaprine [Flexeril] 10 mg PO TID PRN #9 tab 12/07/22 [Rx] Gabapentin [Neurontin] 300 mg PO TID #9 cap 12/07/22 [Rx] [facility]ment[facility]Ref[facility] [place] [facility] [place] [facility] Activity/Diet/Wound Care/Special Instructions: No lifting over 4 pounds in 4 weeks. No bathtub soaks. No shower. No stretching or twisting. Sleep in a recliner. DO NOT REMOVE DRESSINGS. DO NOT REMOVE BINDER. Keep record of MARIYA outputs daily. Discharge Disposition: HOME SELF-CARE
[2022-12-08] MEDS ORDERED: PANTOPRAZOLE 40 MG TABLET PO SCH (07:30)
== END 2022-12-07 17:22 | disposition home or self-care (01) | DRG 571 ==
LOC: 2ORMAIN 13:30 → 4SSUR 19:07
PROVIDERS: ADMIT Surgery Plastic and Reconstructive Surgery; ATTEND Surgery Plastic and Reconstructive Surgery
PROC: 0DQV0ZZ Repair Mesentery, Open Approach (ICD-10-PCS; 2022-12-06)
PROC: 0WQF0ZZ Repair Abdominal Wall, Open Approach (ICD-10-PCS; 2022-12-06)
PROC: 0KXL0Z6 Transfer Left Abdomen Muscle, Transverse Rectus Abdominis Myocutaneous Flap, Open Approach (ICD-10-PCS; 2022-12-06)
PROC: 0JB80ZZ Excision of Abdomen Subcutaneous Tissue and Fascia, Open Approach (ICD-10-PCS; principal; 2022-12-06 15:15)
DX: M79.3 Panniculitis, unspecified (principal); N25.81 Secondary hyperparathyroidism of renal origin; D64.9 Anemia, unspecified; E50.9 Vitamin A deficiency, unspecified; E78.5 Hyperlipidemia, unspecified; G89.29 Other chronic pain; I10 Essential (primary) hypertension; M47.9 Spondylosis, unspecified; M16.0 Bilateral primary osteoarthritis of hip; M17.0 Bilateral primary osteoarthritis of knee; K21.9 Gastro-esophageal reflux disease without esophagitis; K43.9 Ventral hernia without obstruction or gangrene; K52.9 Noninfective gastroenteritis and colitis, unspecified; Z68.28 Body mass index [BMI] 28.0-28.9, adult; Z79.899 Other long term (current) drug therapy; Z85.41 Personal history of malignant neoplasm of cervix uteri; Z87.891 Personal history of nicotine dependence; Z90.710 Acquired absence of both cervix and uterus; Z98.84 Bariatric surgery status; Z71.6 Tobacco abuse counseling
CPT/HCPCS: 85025; 94760

== ENCOUNTER → 2022-12-15 | Outpatient (CLI) | payer BC ==
[2022-12-15 14:39] VITALS: BP 107/68; PULSE 73; TEMP 98; BMI 28.1
--- NOTE | 2023-02-08 00:10 | P.BASOAP ---
Subjective Progress Note Date: 12/15/22 DATE OF SERVICE: 12/15/2022 CHIEF COMPLAINT: Morbid obesity with panniculitis HISTORY OF PRESENT ILLNESS: Tim Dodson is a 57-year-old female status post sleeve gastrectomy, 2020, 2 years ago. She is status post panniculectomy, 12/06/22. She is doing well. Pain is controlled. She denies constipation. MARIYA drains continue to drain minimal serous fluid. At height of 5 feet 2 inches, her ideal body weight is 135 pounds. She was 266 pounds. She comes in 154 pounds from 159 pounds, 2 months ago. She lost 7 pounds ni 2 months. Lifetime weight loss of 112 pounds. Lifetime percent excess weight loss 86%. She is 19 pounds overweight. PHYSICAL EXAM: VITAL SIGNS: Height 5 foot 2 inches, weight 154 pounds. BMI 28.2 Vital Signs Temp 98 F 12/15/22 14:35 Pulse 73 12/15/22 14:35 Resp BP 107/68 12/15/22 14:35 Pulse Ox FiO2 GENERAL: Well-developed in no acute distress. HEENT: No scleral icterus. Extraocular movements grossly intact. Hears conversational speech. No nasal drainage. NECK: Supple without lymphadenopathy. CHEST: Nonlabored respirations with equal bilateral excursions. CARDIOVASCULAR: Regular rate and regular rhythm. Distal 2+ pulses. ABDOMEN: Obese, soft, nontender, nondistended. Incision clean and dry intact. MARIYA drain sites clean and dry bandages replaced and is serous. MUSCULOSKELETAL: No clubbing, cyanosis. NEURO: No focal or lateralizing signs. Cranial nerves 2 through 12 grossly within normal limits. PSYCH: Appropriate affect. Alert and oriented to person, place and time. SKIN: Good skin turgor. Well perfused. ASSESSMENT: 1. Panniculitis with central adiposity 2. Body mass index of 48.8 now 28.2 3. Gastroesophageal reflux disease. 4. Colitis 5. Hyperlipidemia 6. Osteoarthritis of the back 7. Osteoarthritis of the hips 8. Osteoarthritis of the knees 9. Hypertensive heart disease. 10. Vitamin A deficiency 11. Anemia 12. Secondary hyperparathyroidism 13. Morbid obesity due to excess calories 14. Status post sleeve gastrectomy 15. Status post panniculectomy PLAN: 1. Continue MARIYA drains 2. Continue abdominal binder 3. Follow up 1 week. Objective - Vital Signs Vital signs: Vital Signs Temp 98 F 12/15/22 14:35 Pulse 73 12/15/22 14:35 Resp BP 107/68 12/15/22 14:35 Pulse Ox FiO2 Assessment/Plan Plan: Date: 12/15/22 Initial Weight: 121.109 kg Initial BMI: 48.8 Current Weight: 69.853 kg Current BMI: 28.1 Type of Surgery: Total Volume in Band: Previous Volume: Volume Removed: Volume Added: Band Size:
== END | disposition home or self-care (01) ==
LOC: BARWHC3 14:12
PROVIDERS: ATTEND Surgery Plastic and Reconstructive Surgery
DX: E66.01 Morbid (severe) obesity due to excess calories (principal); Z68.42 Body mass index [BMI] 45.0-49.9, adult; K21.9 Gastro-esophageal reflux disease without esophagitis; E78.5 Hyperlipidemia, unspecified; M16.9 Osteoarthritis of hip, unspecified; M17.9 Osteoarthritis of knee, unspecified; I10 Essential (primary) hypertension; Z98.84 Bariatric surgery status; D64.9 Anemia, unspecified; E65 Localized adiposity; K52.9 Noninfective gastroenteritis and colitis, unspecified; E21.3 Hyperparathyroidism, unspecified
CPT/HCPCS: 99212

== ENCOUNTER → 2022-12-22 | Outpatient (CLI) | payer BC ==
[2022-12-22 14:27] VITALS: BP 125/74; PULSE 97; TEMP 98.3; BMI 27.6
--- NOTE | 2022-12-22 15:32 | P.BASOAP ---
Subjective Progress Note Date: 12/22/22 She is nimble and feeling well. She is trying to go to boxing class. All dressings removed. She is doing well. MARIYA's are removed. Objective - Vital Signs Vital signs: Vital Signs Temp 98.3 F 12/22/22 14:24 Pulse 97 12/22/22 14:24 Resp BP 125/74 12/22/22 14:24 Pulse Ox FiO2 Intake & Output 12/21/22 12/22/22 12/22/22 18:59 06:59 18:59 Weight 68.492 kg Assessment/Plan Plan: Date: 12/22/22 Initial Weight: 121.109 kg Initial BMI: 48.8 Current Weight: 68.492 kg Current BMI: 27.6 Type of Surgery: Total Volume in Band: Previous Volume: Volume Removed: Volume Added: Band Size:
== END ==
LOC: BARWHC3 13:49
PROVIDERS: ATTEND Surgery Plastic and Reconstructive Surgery
DX: E66.01 Morbid (severe) obesity due to excess calories (principal); Z68.27 Body mass index [BMI] 27.0-27.9, adult
CPT/HCPCS: 99212

== ENCOUNTER → 2022-12-29 | Outpatient (CLI) | payer BC ==
[2022-12-29 14:31] VITALS: BP 136/81; PULSE 85; RESP 12; TEMP 97.9
--- NOTE | 2022-12-29 14:58 | P.BASOAP ---
Subjective Progress Note Date: 12/29/22 zNO fluid along the abdomen. Her protein intake is 60 to 90 grams. She reports hairloss. She is on lifting restrictions. No infection. Needs bariatric labs. Objective - Vital Signs Vital signs: Vital Signs Temp 97.9 F 12/29/22 14:24 Pulse 85 12/29/22 14:24 Resp 12 12/29/22 14:24 BP 136/81 12/29/22 14:24 Pulse Ox FiO2 Assessment/Plan Plan: Date: 12/29/22 Initial Weight: 121.109 kg Initial BMI: Current Weight: Current BMI: Type of Surgery: Total Volume in Band: Previous Volume: Volume Removed: Volume Added: Band Size:
== END ==
LOC: BARWHC3 13:48
PROVIDERS: ATTEND Surgery Plastic and Reconstructive Surgery
DX: E66.01 Morbid (severe) obesity due to excess calories (principal)
CPT/HCPCS: 99212

== ENCOUNTER → 2023-01-12 | Outpatient (CLI) | payer BC ==
[2023-01-12 14:52] LABS: INR 0.9 (<1.2); Partial Thromboplastin Time 23.3 sec (22.0-30.0); Prothrombin Time 9.5 sec (9.0-12.0)
[2023-01-12 20:46] LABS: % Iron Saturation 16.11 (12.00-45.00); ALT 21 U/L (8-44); AST 23 U/L (13-35); Albumin 4.4 d/dL (3.8-4.9); Alkaline Phosphatase 69 U/L (41-126); Blood Urea Nitrogen 15.9 mg/dL (9.0-27.0); Calcium 9.8 mg/dL (8.7-10.3); Carbon Dioxide 27.7 mmol/L (21.6-31.8); Chloride 104 mmol/L (96-109); Chol/HDL Ratio 2.77 Ratio; Globulin 2.1 d/dL (1.6-3.3); Glucose 94 mg/dL (70-110); Iron 58 UG/DL (50-170); LDL Cholesterol,Calculated 121.2 mg/dL (0.0-131.0); Magnesium 2.1 mg/dL (1.5-2.4); Phosphorus 3.5 mg/dL (2.4-5.1); Potassium 4.6 mmol/L (3.5-5.5); Sodium 142 mmol/L (135-145); Total Bilirubin 0.2 mg/dL (0.3-1.2); Total Iron Binding Capacity 360 UG/DL (228-460); Total Protein 6.5 d/dL (6.2-8.2); VLDL Calculation 13.06 mg/dL (5.00-40.00)
[2023-01-12 21:15] LABS: HGB 14.1 d/dL (12.0-15.0); MCH 29.7 pg (27.0-32.0); MCV 92.6 FL (80.0-97.0); Mean Platelet Volume 9.8 FL (9.5-12.2); NRBC Per 100 WBC 0 X 10*3/uL (0.00-0.01); Platelet Count 204 X 10*3/uL (140-440); RBC 4.75 X 10*6/uL (4.10-5.20); RDW 13.7 % (11.5-14.5); WBC 5.49 X 10*3/uL (4.50-10.00)
[2023-01-12 22:01] LABS: Prealbumin 23.8 mg/dL (18.0-42.0)
[2023-01-12 23:14] LABS: Ferritin 59.2 ng/mL (10.0-291.0)
[2023-01-13 13:33] LABS: Zinc, Serum 77 ug/dL (60-130)
[2023-01-14 06:31] LABS: Vit B1(Thiamine) 73 ug/L (38-122)
[2023-01-14 08:04] LABS: Vitamin A 62 ug/dL (38-106)
== END | disposition home or self-care (01) ==
LOC: LABMAIN 12:19
PROVIDERS: ATTEND Surgery Plastic and Reconstructive Surgery
DX: E66.01 Morbid (severe) obesity due to excess calories (principal); E89.1 Postprocedural hypoinsulinemia; K91.2 Postsurgical malabsorption, not elsewhere classified; E44.0 Moderate protein-calorie malnutrition; E44.1 Mild protein-calorie malnutrition; E45 Retarded development following protein-calorie malnutrition; E46 Unspecified protein-calorie malnutrition; E55.9 Vitamin D deficiency, unspecified; K74.1 Hepatic sclerosis; N19 Unspecified kidney failure; T56.894A Toxic effect of other metals, undetermined, initial encounter
CPT/HCPCS: 80053; 80061; 82306; 82525; 82607; 82728; 82746; 83036; 83540; 83550; 83735; 83970; 84100; 84134; 84255; 84425; 84443; 84590; 84630; 85027; 85610; 85730

== ENCOUNTER → 2023-02-04 | Outpatient (CLI) | payer BC ==
--- NOTE | 2023-02-07 16:11 | MM ---
Reason for Exam: Screening (asymptomatic). Last mammogram was performed 3 year(s) and 4 month(s) ago. Patient History: Menarche at age 12. First Full-Term at age 38. Late child-bearing (after 30). Hysterectomy at age 38. Postmenopausal. Endometrial cancer, age 38. Core Biopsy on the Right side. 10/02/2001, Benign Stereotactic Core Biopsy on the right side. Risk Values: Meme 5 year model risk: 2.8%. NCI Lifetime model risk: 17.3%. Prior Study Comparison: 08/09/2014 Bilateral Screening Mammogram, [facility]. 10/15/2015 Bilateral Screening Mammogram, [facility]. 10/20/2016 Bilateral Screening Mammogram, [facility] 06/05/2018 Bilateral Screening Mammogram, [facility]. 09/21/2019 Bilateral Screening Mammogram, [facility]. Tissue Density: There are scattered fibroglandular densities. Findings: Analyzed By CAD. Abdomen appears symmetrical and stable. Scattered benign calcifications are present bilaterally. A core marker is within the right breast. No significant interval change is evident. No suspicious groups of microcalcifications, spiculated or lobular masses, architectural distortion or other secondary signs of malignancy are mammographically apparent. Overall Assessment: Benign, BI-RAD 2 Management: Screening Mammogram of both breasts in 1 year. A negative mammogram report should not preclude additional follow up of suspicious palpable abnormalities. Patient should continue monthly self breast exam. A clinical breast exam by your physician is recommended on an annual basis and results should be correlated with mammographic findings. Electronically signed and approved by: Villa Garcia D.O. Radiologis
== END | disposition home or self-care (01) ==
LOC: RADMAMWWP 12:41
PROVIDERS: ATTEND Obstetrics & Gynecology
DX: Z12.31 Encounter for screening mammogram for malignant neoplasm of breast (principal); Z78.0 Asymptomatic menopausal state
CPT/HCPCS: 77063; 77067

== ENCOUNTER → 2023-11-12 | Outpatient (CLI) | payer BC ==
--- NOTE | 2023-11-12 12:55 | XR ---
EXAMINATION TYPE: XR Hip Complete RT DATE OF EXAM: 11/12/2023 CLINICAL HISTORY: pain TECHNIQUE: AP and frogleg views of the right hip are obtained. COMPARISON: None. FINDINGS: There is no acute fracture/dislocation evident. The joint space appears moderate degener ative narrowing right hip joint space. The overlying soft tissue appears unremarkable. IMPRESSION: 1. There is no acute fracture or dislocation. ICD 10 NO FRACTURE, INITIAL EVALUATION
--- NOTE | 2023-11-12 12:56 | XR ---
EXAMINATION TYPE: XR lumbar spine 2 or 3V DATE OF EXAM: 11/12/2023 CLINICAL HISTORY: pain TECHNIQUE: Three views of the lumbar spine are submitted. COMPARISON: None. FINDINGS: There are 5 lumbar type vertebral bodies identified. The lumbar spine shows satisfactory alignment w ithout evidence of acute fracture or dislocation. Vertebral body heights are within normal limits. Mo derate multilevel degenerative disc space narrowing. Moderate facet joint arthropathy. Grade 1 3 mm a nterolisthesis L4 on L5. The overlying soft tissue appears unremarkable. IMPRESSION: No acute fracture or dislocation is seen in the lumbar spine. ICD 10 NO FRACTURE, INITIAL EVALUATION
== END | disposition home or self-care (01) ==
LOC: RADXRMAIN 11:17
PROVIDERS: ATTEND Family Medicine
DX: M00.051 Staphylococcal arthritis, right hip (principal); M54.50 Low back pain, unspecified; M25.551 Pain in right hip
CPT/HCPCS: 72100; 73502

== ENCOUNTER → 2024-02-24 | Outpatient (CLI) | payer BC ==
--- NOTE | 2024-02-28 08:49 | MM ---
Reason for Exam: Screening (asymptomatic). Last mammogram was performed 1 year(s) and 1 month(s) ago. Patient History: Menarche at age 12. First Full-Term at age 38. Late child-bearing (after 30). Hysterectomy at age 38. Postmenopausal. Endometrial cancer, age 38. Core Biopsy on the Right side. 10/02/2001, Benign Stereotactic Core Biopsy on the right side. Risk Values: Meme 5 year model risk: 2.9%. NCI Lifetime model risk: 17.0%. Prior Study Comparison: 06/05/2018 Bilateral Screening Mammogram, [facility]. 09/21/2019 Bilateral Screening Mammogram, [facility]. 02/04/2023 Bilateral MG 3D screening mammo w/cad, [facility]. Tissue Density: The breasts are heterogeneously dense, which may obscure small masses. Findings: Analyzed By CAD. There is no suspicious group of microcalcifications or new suspicious mass in either breast. Benign calcifications. Surgical clip right breast stable. Asymmetric density in the right breast stable. Overall Assessment: Benign, BI-RAD 2 Management: Screening Mammogram of both breasts in 1 year. . Patient should continue monthly self-breast exams. A clinical breast exam by your physician is recommended on an annual basis. This exam should not preclude additional follow-up of suspicious palpable abnormalities. Note on Meme scores and lifetime risk: 1. A Meme score greater than 3% is considered moderate risk. If this is the case, consider specialist referral to assess eligibility for a risk reducing agent. 2. If overall lifetime risk for the development of breast cancer is 20% or higher, the patient may qualify for future screening with alternating mammogram and breast MRI. Electronically signed and approved by: Wu John M.D. Radiologis
== END | disposition home or self-care (01) ==
LOC: RADMAMWWP 16:09
PROVIDERS: ATTEND Family Medicine
DX: Z12.31 Encounter for screening mammogram for malignant neoplasm of breast (principal); Z78.0 Asymptomatic menopausal state; R92.333 Mammographic heterogeneous density, bilateral breasts
CPT/HCPCS: 77063; 77067

== ENCOUNTER → 2024-06-13 | Outpatient (CLI) | payer BC ==
[2024-06-14 02:27] LABS: HCT 41.9 % (37.2-46.3); HGB 14.1 g/dL (12.0-15.0); MCH 31.3 pg (27.0-32.0); MCHC 33.7 g/dL (32.0-37.0); MCV 93.1 FL (80.0-97.0); Mean Platelet Volume 9.6 FL (9.5-12.2); NRBC Per 100 WBC 0 X 10*3/uL (0.00-0.01); Platelet Count 191 X 10*3/uL (140-440); RDW 12.7 % (11.5-14.5); WBC 6.57 X 10*3/uL (4.50-10.00)
[2024-06-14 03:36] LABS: % Iron Saturation 26.88 (12.00-45.00); ALT 16 U/L (8-44); AST 22 U/L (13-35); Albumin 4.3 g/dL (3.8-4.9); Albumin/Globulin Ratio 1.95 Ratio (1.60-3.17); Alkaline Phosphatase 70 U/L (41-126); BUN/Creat Ratio 25.14 Ratio (12.00-20.00); Blood Urea Nitrogen 17.6 mg/dL (9.0-27.0); Calcium 9.2 mg/dL (8.7-10.3); Carbon Dioxide 27.1 mmol/L (21.6-31.8); Chloride 106 mmol/L (96-109); Globulin 2.2 g/dL (1.6-3.3); Glucose 79 mg/dL (70-110); Iron 93 UG/DL (50-170); Sodium 143 mmol/L (135-145); T4, Free (Free Thyroxine) 1.73 ng/dL (0.80-1.80); Total Bilirubin 0.4 mg/dL (0.3-1.2); Total Iron Binding Capacity 346 UG/DL (228-460); Total Protein 6.5 g/dL (6.2-8.2)
[2024-06-14 04:17] LABS: Thyroid Peroxidase Antibodies 12.3 U/mL (0.0-33.0)
[2024-06-14 21:46] LABS: Thyroid Stim Immun Quant <0.10 IU/L (<0.10)
[2024-06-15 05:44] LABS: Vit B1(Thiamine) 70 ug/L (38-122)
--- NOTE | 2024-06-16 20:19 | US ---
EXAMINATION TYPE: US thyroid st tissue head/neck DATE OF EXAM: 06/13/2024 COMPARISON: NONE CLINICAL INDICATION: Female, 58 years old with history of E04.2 Nontoxic multinodular goiter; f/u, pr evious left thyroidectomy TECHNIQUE: Grayscale and color Doppler imaging of the thyroid gland. FINDINGS: GLAND SIZE: Right Lobe: 4.8 x 1.8 x 2.4 cm Overall Parenchyma: heterogeneous Left Lobe: Surgically absent Isthmus Thickness: 0.4 cm NODULES RIGHT: # of nodules measured on right: measured largest 1. 1.1 X 1.0 x 1.1 cm, mid , solid or almost completely solid, hypoechoic nodule, which is wider th an tall, with smooth margins, with echogenic foci. Prior size: 1.3 x 1.1 x 1.3 cm LEFT: surgically absent ISTHMUS: # of nodules measured in the isthmus: 0 Bilateral neck scanned, no evidence of lymphadenopathy. IMPRESSION: Mildly Suspicious: FNA if ? 2.5 cm; Follow if ? 1.5 cm at 1, 3, and 5 y 2017 ACR TI-RADS LEVEL: TR3 *Highest TI-RADS level nodule reported [email or web address] [facility], , 06/16/2024 8:16 PM
== END | disposition home or self-care (01) ==
LOC: RADUSWWP 16:04
PROVIDERS: ATTEND Internal Medicine Endocrinology, Diabetes & Metabolism
DX: E04.2 Nontoxic multinodular goiter (principal)
CPT/HCPCS: 76536; 80053; 82533; 82607; 82746; 83540; 83550; 84146; 84207; 84425; 84439; 84443; 84445; 84480; 85027; 86376

== ENCOUNTER → 2024-07-24 | Outpatient (CLI) | payer BC ==
[2024-07-24 08:43] LABS: INR 0.9 (<1.2); Partial Thromboplastin Time 22.2 sec (22.0-30.0); Prothrombin Time 10.1 sec (10.0-12.5)
[2024-07-24 10:16] LABS: HCT 44.7 % (37.2-46.3); HGB 14.3 g/dL (12.0-15.0); MCH 29.4 pg (27.0-32.0); Mean Platelet Volume 9.4 FL (9.5-12.2); NRBC Per 100 WBC 0 X 10*3/uL (0.00-0.01); Platelet Count 203 X 10*3/uL (140-440); RBC 4.86 X 10*6/uL (4.10-5.20); RDW 12.8 % (11.5-14.5); WBC 4.61 X 10*3/uL (4.50-10.00)
[2024-07-24 13:16] LABS: Prealbumin 23.5 mg/dL (18.0-42.0)
[2024-07-24 13:19] LABS: % Iron Saturation 19.77 (12.00-45.00); ALT 16 U/L (8-44); AST 25 U/L (13-35); Albumin 4.3 g/dL (3.8-4.9); Albumin/Globulin Ratio 2.05 Ratio (1.60-3.17); Alkaline Phosphatase 70 U/L (41-126); BUN/Creat Ratio 25.14 Ratio (12.00-20.00); Blood Urea Nitrogen 17.6 mg/dL (9.0-27.0); Calcium 9.1 mg/dL (8.7-10.3); Carbon Dioxide 25.1 mmol/L (21.6-31.8); Chloride 106 mmol/L (96-109); Chol/HDL Ratio 2.75 Ratio; Globulin 2.1 g/dL (1.6-3.3); Glucose 94 mg/dL (70-110); Iron 69 UG/DL (50-170); LDL Cholesterol,Calculated 111.5 mg/dL (0.0-131.0); Magnesium 1.9 mg/dL (1.5-2.4); Phosphorus 3.8 mg/dL (2.4-5.1); Potassium 4.4 mmol/L (3.5-5.5); Sodium 143 mmol/L (135-145); Total Bilirubin 0.3 mg/dL (0.3-1.2); Total Iron Binding Capacity 349 UG/DL (228-460); Total Protein 6.4 g/dL (6.2-8.2)
[2024-07-24 13:20] LABS: Ferritin 72.2 ng/mL (10.0-291.0)
[2024-07-26 08:05] LABS: Vit B1(Thiamine) 68 ug/L (38-122)
== END | disposition home or self-care (01) ==
LOC: LABPAT 07:58
PROVIDERS: ATTEND Surgery Plastic and Reconstructive Surgery
DX: E66.01 Morbid (severe) obesity due to excess calories (principal); E89.1 Postprocedural hypoinsulinemia; D50.8 Other iron deficiency anemias; K90.89 Other intestinal malabsorption; E55.9 Vitamin D deficiency, unspecified; K74.1 Hepatic sclerosis; N19 Unspecified kidney failure; T56.894A Toxic effect of other metals, undetermined, initial encounter; K50.90 Crohn's disease, unspecified, without complications; Z68.26 Body mass index [BMI] 26.0-26.9, adult
CPT/HCPCS: 80053; 80061; 82306; 82525; 82607; 82728; 82746; 83036; 83540; 83550; 83735; 83970; 84100; 84134; 84255; 84425; 84443; 84590; 84630; 85027; 85610; 85730

== ENCOUNTER → 2024-07-25 | Outpatient (CLI) | payer BC ==
[2024-07-25 19:34] VITALS: BP 153/83; PULSE 60; RESP 16; TEMP 98; BMI 29.6
--- NOTE | 2024-07-25 19:34 | P.BASOAP ---
Subjective Progress Note Date: 07/25/24 She is on sleeve. Get off protonix advised. She gained 13 pounds. No abdominal pain. Needs blood work. She is taking a regular MVI and eating a balanced diet. Her blood pressure is high. Objective - Vital Signs Vital signs: Vital Signs Temp 98.0 F 07/25/24 17:20 Pulse 60 07/25/24 17:20 Resp 16 07/25/24 17:20 BP 153/83 07/25/24 17:20 Pulse Ox FiO2 Intake & Output 07/24/24 07/25/24 07/25/24 18:59 06:59 18:59 Weight 73.482 kg Assessment/Plan Plan: Date: 07/25/24 Initial Weight: 121.109 kg Initial BMI: 48.8 Current Weight: 73.482 kg Current BMI: 29.6 Type of Surgery: Total Volume in Band: Previous Volume: Volume Removed: Volume Added: Band Size:
== END ==
LOC: BARWHC3 16:26
PROVIDERS: ATTEND Surgery Plastic and Reconstructive Surgery
DX: E66.01 Morbid (severe) obesity due to excess calories (principal); Z68.29 Body mass index [BMI] 29.0-29.9, adult
CPT/HCPCS: 99211

== ENCOUNTER → 2024-08-15 | Outpatient (CLI) | payer BC ==
--- NOTE | 2024-08-16 16:33 | NM ---
EXAMINATION TYPE: NM thyroid image w uptake DATE OF EXAM: 08/16/2024 COMPARISON: Prior thyroid ultrasound June 13, 2024 CLINICAL INDICATION: Female, 59 years old with history of E05.90 THYROTOXICOSIS; history of left-side d thyroidectomy. TECHNIQUE: Thyroid iodine uptake is calculated and images performed after the oral administration of 298 uCi 1-123 Capsule. FINDINGS: There is heterogeneous uptake through the remnant right thyroid lobe. There is asymmetric d iminished uptake lower pole level corresponding to the solid nodule on ultrasound. The 4 hour iodine uptake is calculated at 8% (normal range 8-14%). The 24-hour iodine uptake is calculated at 22% (norm al range 15-35%). IMPRESSION: Normal thyroid uptake. Asymmetric diminished radiotracer uptake to the dominant lower eliza e solid right thyroid nodule makes more suspicious for malignancy. Consider ultrasound-guided FNA to further evaluate. [facility], , 08/16/2024 4:30 PM
== END | disposition home or self-care (01) ==
LOC: RADNMMAIN 09:23
PROVIDERS: ATTEND Internal Medicine Endocrinology, Diabetes & Metabolism
DX: E05.90 Thyrotoxicosis, unspecified without thyrotoxic crisis or storm (principal); E04.1 Nontoxic single thyroid nodule
CPT/HCPCS: 78014; A9516